=== PATIENT | female | born 1955 | race Caucasian/White ===

== ENCOUNTER 2019-05-18 07:37 | Outpatient (CLI) | payer BC, SELFPAY ==
--- NOTE | ~2019-05-18 | MM_ITS ---
EXAMINATION: MM screening [facility] BI w ken HISTORY: Screening mammogram TECHNIQUE: Craniocaudal and mediolateral oblique 3-D tomosynthesis images were obtained and synthetic 2-D images were generated. CAD analysis was submitted and interpreted. COMPARISON: Comparison to multiple prior studies sequentially, with oldest reviewed study dated 10/23. BREAST PARENCHYMAL COMPOSITION: There are scattered areas of fibroglandular density. FINDINGS: There is no evidence of suspicious mass, calcification, or architectural distortion to sugg est malignancy in either breast. There has been no suspicious interval change. IMPRESSION: 1. No mammographic evidence of malignancy. 2. Recommend routine screening mammography in one year. BI-RADS Category 1: Negative Reviewed, dictated and finalized at location A.
== END 2019-05-18 07:38 | disposition home or self-care (01) ==
LOC: ANHIMG 07:46
PROVIDERS: PCP Family Medicine; Visit Provider Student in an Organized Health Care Education/Training Program
DX: Z12.31 Encounter for screening mammogram for malignant neoplasm of breast (principal)
CPT/HCPCS: 77063; 77067

== ENCOUNTER 2021-10-26 10:21 | Outpatient (CLI) | payer BC, SELFPAY ==
--- NOTE | ~2021-10-26 | MM_ITS ---
EXAMINATION: MM screening [facility] BI w ken HISTORY: Screening mammogram TECHNIQUE: Craniocaudal and mediolateral oblique 3-D tomosynthesis images were obtained and synthetic 2-D images were generated. CAD analysis was submitted and interpreted. COMPARISON: 05/18/2019, 11/10/2017 BREAST PARENCHYMAL COMPOSITION: There are scattered areas of fibroglandular density. FINDINGS: There is no suspicious mass, calcification, or architectural distortion to suggest malignan cy in either breast. There has been no suspicious interval change. IMPRESSION: 1. No mammographic evidence of malignancy. 2. Recommend routine screening mammography in one year. BI-RADS Category 1: Negative Reviewed, dictated and finalized at location A.
== END 2021-10-26 10:22 | disposition home or self-care (01) ==
LOC: ANHIMG 10:23
PROVIDERS: PCP Family Medicine; Visit Provider Student in an Organized Health Care Education/Training Program
DX: Z12.31 Encounter for screening mammogram for malignant neoplasm of breast (principal)
CPT/HCPCS: 77063; 77067

== ENCOUNTER → 2022-08-27 10:28 | Outpatient (CLI) | payer MEDICARE, SELFPAY ==
--- NOTE | ~2022-08-27 | US_ITS ---
EXAMINATION: US pelvic complete w TV DATE: 08/27/2022 10:53 INDICATION: Postmenopausal bleeding TECHNIQUE: Multiple transabdominal and endovaginal sonographic images of the pelvis were obtained. COMPARISON: None. FINDINGS: The uterus measures 7.1 x 3.3 x 4.5 cm. There is a 1.6 x 1.3 cm mildly hyperechoic mass in the anterior uterine body with the appearance of an intramural fibroid. The endometrial complex measu res 9 mm. The ovaries are not visualized however no adnexal abnormality is seen. There is no free flu id in the pelvis. IMPRESSION: 1. Endometrial thickening which may be due to hyperplasia, polyp, or malignancy. Endometrial sampling is recommended. Reviewed, dictated and finalized at location B. IMPRESSION: 1. Endometrial thickening which may be due to hyperplasia, polyp, or malignancy . Endometrial sampling is recommended.
== END ==
PROVIDERS: PCP Family Medicine; Visit Provider Registered Nurse
DX: N95.0 Postmenopausal bleeding (principal); R93.89 Abnormal findings on diagnostic imaging of other specified body structures
CPT/HCPCS: 76830; 76856

== ENCOUNTER 2022-12-13 13:31 | Outpatient (CLI) | payer MEDICARE, SELFPAY ==
--- NOTE | ~2022-12-13 | MM_ITS ---
EXAMINATION: MM screening [facility] BI w ken HISTORY: Screening TECHNIQUE: Craniocaudal and mediolateral oblique 3-D tomosynthesis images were obtained and synthetic 2-D images were generated. CAD analysis was submitted and interpreted. COMPARISON: Comparison to multiple prior studies sequentially, with oldest reviewed study dated 10/23. BREAST PARENCHYMAL COMPOSITION: There are scattered areas of fibroglandular density. FINDINGS: There is no evidence of suspicious mass, calcification, or architectural distortion to sugg est malignancy in either breast. There has been no suspicious interval change. IMPRESSION: 1. No mammographic evidence of malignancy. 2. Recommend routine screening mammography in one year. BI-RADS Category 1: Negative Reviewed, dictated and finalized at location A.
== END 2022-12-13 13:32 | disposition home or self-care (01) ==
LOC: ANHIMG 13:36
PROVIDERS: PCP Family Medicine; Visit Provider Obstetrics & Gynecology
DX: Z12.31 Encounter for screening mammogram for malignant neoplasm of breast (principal)
CPT/HCPCS: 77063; 77067

== ENCOUNTER → 2023-02-07 09:18 | Outpatient (CLI) | payer MEDICARE, SELFPAY ==
--- NOTE | ~2023-02-07 | MR_ITS ---
MRI of the right shoulder Technique: Axial proton-density fat-sat images, coronal proton density fat-sat and T2 fat-sat images, and sagittal T1-weighted and T2 fat-sat images were acquired. Clinical History: Pain Findings: There is moderate AC joint degenerative change. Coracoclavicular, coracoacromial, and corac ohumeral ligaments are intact. There is a 1.0 x 0.8 cm full-thickness tear of the anterior, distal supraspinatus tendon insertion. T here is background advanced tendinosis of the supraspinatus tendon. Infraspinatus tendon demonstrates moderate tendinosis, without partial or full-thickness tear. There is mild to moderate subscapularis tendinosis, without tear. Tendon of long head of the biceps is intact, with probable advanced intra- articular tendinosis. No labral tear evident. Inferior glenohumeral ligament is intact. There is small glenohumeral joint effusion, with fluid pass ing through the rotator cuff defect into the subacromial/subdeltoid bursa. No muscle atrophy or edema evident. No degenerative change of the glenohumeral joint. Impression: 1.0 x 0.8 cm full-thickness tear at the anterior, distal supraspinatus tendon insertion region. Severe rotator cuff tendinosis. Moderate AC joint degenerative change. Reviewed, dictated and finalized at [facility]. ERCIAL LINES MANAGER Impression: 1.0 x 0.8 cm full-thickness tear at the anterior, distal supraspinatus tendon i nsertion region. Severe rotator cuff tendinosis. Moderate AC joint degenerative change.
== END ==
PROVIDERS: PCP Orthopaedic Surgery; Visit Provider Physician Assistant Surgical
DX: M75.121 Complete rotator cuff tear or rupture of right shoulder, not specified as traumatic (principal); M19.011 Primary osteoarthritis, right shoulder
CPT/HCPCS: 73221

== ENCOUNTER 2023-04-19 09:45 | Outpatient (CLI) | payer MEDICARE, SELFPAY ==
--- NOTE | 2023-04-19 09:59 | ECG_ITS ---
Measurements Intervals [place] Rate: 65 P: -4 TX: 161 QRS: -20 QRSD: 89 T: 12 QT: 406 QTc: 422 Interpretive Statements SINUS RHYTHM NO PREVIOUS ECG AVAILABLE FOR COMPARISON Electronically Signed On 04-19-2023 15:37:24 HAND STONER by Panda Rock M.D.
== END 2023-04-19 09:46 | disposition home or self-care (01) ==
PROVIDERS: PCP Family Medicine; Visit Provider Family Medicine
DX: Z01.818 Encounter for other preprocedural examination (principal)
CPT/HCPCS: 93005

== ENCOUNTER 2024-05-11 15:24 | Outpatient (CLI) | payer MEDICARE, SELFPAY ==
--- NOTE | ~2024-05-11 | MM_ITS ---
EXAMINATION: MM screening jamie BI w ken HISTORY: Screening TECHNIQUE: Craniocaudal and mediolateral oblique 3-D tomosynthesis images were obtained and synthetic 2-D images were generated. CAD analysis was submitted and interpreted. COMPARISON: Comparison to multiple prior studies sequentially, with oldest reviewed study dated 02/2015. BREAST PARENCHYMAL COMPOSITION: Not dense: There are scattered areas of fibroglandular density. FINDINGS: There is no evidence of suspicious mass, calcification, or architectural distortion to sugg est malignancy in either breast. There has been no suspicious interval change. IMPRESSION: 1. No mammographic evidence of malignancy. 2. Recommend routine screening mammography in one year. BI-RADS Category 1: Negative Reviewed, dictated and finalized at location B.
--- OUTSIDE RECORDS SUMMARY | 2024-05-11 15:29 | XMS_ITS | Referral Summary ---
Author Organization [facility] Address [address] [place] [id number] Care Team Providers Care Medical Records Tech Name Role Phone Mary Ann Betancourt MD Primary Care Provider [phone] Allergies Active Allergy Reactions Criticality Noted Date Comments Codeine Nausea only Low 04/29/2023 Medications ESTRADIOL ORALIndications :horomone Take 2.25 mg by mouth every morning Active prasterone, DHEA, (DHEA ORAL)Indication s:supplement Take 5 mg by mouth every morning Active PROGESTERONE MICRONIZED ORALIndications :horomone Take 300 mg by mouth nightly Active VITAMINS A AND D ORALIndications :supplement Take 1 capsule by mouth every morning With Vitamin K Active UNABLE TO FINDIndications :horomone Apply 1 each topically nightly Med Name: Testosterone Cream 65mg/ml Active THYROID, BULK, MISCIndications :thyroid Take 2.25 granules by mouth every morning Active omega-3/dha/epa /fish oil (OMEGA-3 ORAL)Indication s:supplement Take 2 tablets by mouth every morning Plus Co-Q10 Active turmeric root extract 500 mg capsuleIndicati ons:supplement Take 482 mg by mouth every morning Active cetirizine (ZyrTEC) 10 mg tabletIndicatio ns:Seasonal Allergic Rhinitis Take 1 tablet (10 mg total) by mouth nightly Active oxyCODONE (ROXICODONE) 5 mg immediate release tabletIndicatio ns:Pain Take 1 tablet (5 mg total) by mouth every 6 (six) hours as needed for pain 28 tablet 4 Active ketorolac (TORADOL) 10 mg tablet Take 1 tablet (10 mg total) by mouth every 6 (six) hours as needed for pain 12 tablet 4 Active senna-docusate (PERICOLACE) 8.6-50 mg Take 1 tablet by mouth 2 (two) times a day as needed for constipation 30 tablet 4 Active Active Problems Problem Noted Date Diagnosed Date Biceps tendinitis of right shoulder 05/24/2023 Right shoulder pain 04/11/2023 Traumatic complete tear of right rotator cuff Non-toxic multinodular goiter 07/14/2013 Overview (06/03/2016): NONTOX MULTINODUL GOITER Subacute thyroiditis 07/14/2013 Overview (2016): SUBACUTE THYROIDITIS Hypothyroidism 07/14/2013 Overview (2016): HYPOTHYROIDISM NOS Social History Tobacco Use Types Packs/Day Years Used Date Smoking Tobacco: Former Cigarettes Q uit: 1976 Smokeless Tobacco: Former Tobacco Cessation:Counseling Given: Not Answered AUDIT-C Answer Date Recorded Q1: How often do you have a drink containing alc ohol? 2-4 times a month 05/24/2023 Q2: How many drinks containi ng alcohol do you have on a typical day when you are drinking? 1 or 2 05/24/2023 Q3: How often do you have si x or more drinks on one occasion? Never 05/24/2023 Personal Safety Answer Date Recorded Have you ever been in or are you currently in a harmful physical or emotional relationship or is someone making you feel afraid or unsafe? 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 Gender Identity Not on file Sexual Orientation Not on file Last Filed Vital Signs Vital Sign Reading Time Taken Comments Blood Pressure 147/84 05/24/2023 11:50 AM CDT Pulse 69 05/24/2023 11:55 AM CDT Temperature 36.3 C (97.3 F) 05/24/2023 11:18 AM CDT Respiratory Rate 18 05/24/2023 11:55 AM CDT Oxygen Saturation 97% 05/24/2023 11:55 AM CDT Inhaled Oxygen Concentration - - Weight 76.4 kg (168 lb 8 oz) 05/24/2023 7:05 AM CDT Height 162.6 cm (5' 4 ) 05/24/2023 7:05 AM CDT Body Mass Index 28.92 05/24/2023 7:05 AM CDT Plan of Treatment Not on file Medical Devices Implanted Type Area Databases Computer Consultant Device Identifier Shelf Expiration Date Model / Serial / Lot [employer] Fiberloop 3.2mm Drill Pin Needle Shoehorn Cannula Kit Suture Ar-2290 - [id number] Implanted:Qty: 1 on 05/24/2023 by Sneha Willis MD at [facility] [place] Right: Shoulder [employer] [id number] 01/28/2028 AR-2290 / / [id number] [employer] Suture Blessing Triple Loaded Knotless Fibertak 2.6mm Ar-[id number] - [id number] Implanted:Qty: 1 on 05/24/2023 by Sneha Willis MD at [facility] [place] Right: Shoulder [employer] 03/30/2028 AR-[id number] / / [id number] [employer] Ar-2324 Bcm Swivelock 4.75mm 24.5mm Self Punch Vent Shoulder Blessing Suture - [id number] Implanted:Qty: 1 on 05/24/2023 by Sneha Willis MD at [facility] [place] Right: Shoulder [employer] 12/28/2026 AR-[id number] M / / [id number] [employer] Ar-2324 Bcm Swivelock 4.75mm 24.5mm Self Punch Vent Shoulder Blessing Suture - [id number] Implanted:Qty: 1 on 05/24/2023 by Sneha Willis MD at [facility] [place] Right: Shoulder [employer] 12/28/2026 [id number] M / / [id number] Insurance MEDICARE [employer] Care Teams Medical Records Tech Relationship Specialty Start Date End Date Mary Ann Betancourt MD PCP - General 02/14/07
--- OUTSIDE RECORDS SUMMARY | 2024-05-11 15:29 | XMS_ITS | Clinical Summary ---
Author Organization [facility] Address [address] [place] [address] Care Team Providers Care Offset Second Press Operator Name Role Phone Ruthann Pepper MD Unavailable [phone] Yonatan Quick MD Unavailable [phone] Mary Ann Betancourt MD Primary Care Provider [phone] Source Comments [facility],non-owned Affiliates and Associated Physician Practices is amultiple site organization consisting of ambulatory clinics and hospital sitesin [place], [place], [place] and [place]. This disclosure is being madepursuant to the Care Everywhere program and may not contain all information available regarding this patient. Last updated 17.[facility] Allergies No known active allergies Medications * Be aware that medications may not be up to date on this document. Alwaysverify current medications with the patient. Medication Sig Dispensed Refills Start Date End Date Status Prasterone, DHEA, (DHEA MICRONIZED PO) Take 5 mg/day by mouth once daily Active progesterone 300 mg ERT 300 mg tablet Take 1 (one) tablet by mouth once daily Active Coenzyme [id number] 3 Fatty Acd (CoQmax [place]) 100 MG CAPS Take 100 mg/day by mouth once daily Active Other Take by mouth once daily Thyroid 2.75 grains Active estradiol (Estrace) 2 MG tablet Take 1 (one) tablet by mouth once daily Active bioidentical testosterone cream compound Apply to affected area once daily Strength: 65mg /ml Active vitamin D3 (D3 5000) 125 MCG (5000 UT) capsule Take 1 (one) capsule by mouth once daily Active Turmeric 500 MG Active lisinopril (Prinivil; Zestril) 2.5 MG tablet Take 1 (one) tablet by mouth once daily Active Active Problems Problem Noted Date Diagnosed Date Family history of kidney disease 03/18/2024 HTN (hypertension), benign 03/18/2024 Microalbuminuria 08/05/2023 Willing to be kidney donor 08/19/2022 Overview (10/01/2022): Images from the original note were not included. Kidney Donor Review Donor Name: Rosi Babb UNOS ID: Living Donor Nurse Coordinator: Surjit Raygoza RN Test Donor Results Acceptable to proceed with donation? LABS CMP BUN (mg/dL) Date Value 09/20/2022 15 Creatinine (mg/dL) Date Value 09/20/2022 0.73 Sodium (mmol/L) Date Value 09/20/2022 138 Potassium (mmol/L) Date Value 09/20/2022 4.3 Chloride (mmol/L) Date Value 09/20/2022 107 CO2 (mmol/L) Date Value 09/20/2022 24 Glucose (mg/dL) Date Value 09/20/2022 92 Calcium (mg/dL) Date Value 09/20/2022 9.2 Albumin (g/dL) Date Value 09/20/2022 3.6 Bilirubin Total (mg/dL) Date Value 09/20/2022 1.0 Alkaline Phosphatase (U/L) Date Value 09/20/2022 49 ALT (U/L) Date Value 09/20/2022 15 AST (U/L) Date Value 09/20/2022 19 eGFR by CKD-EPI (mL/min/1.73 m2) Date Value 09/20/2022 >90 Acceptable PHOS Recent Labs Component Name 09/20/22 0821 PHOS 2.2* UNACCEPTABLE (plan to repeat 10/01/22 with PTH, Vit D, and urine phos and urine creatinine Uric Acid Recent Labs Component Name 09/20/22 0821 URICACID 4.2 Acceptable Lipid profile Acceptable Drug Screen Recent Labs Component Name 09/20/22 0820 LABAMPH Negative LABBARB Negative LABBENZ Negative LABOPIA Negative COCAINESCRN Negative PCPUR Negative THCUR Negative METHADONE Negative Acceptable Alcohol Recent Labs Component Name 09/20/22 0821 ETOH <10 Acceptable Nicotine Recent Labs Component Name 09/20/22 0821 NICOTBLD <5 COTINBLD <5 Acceptable Urinalysis + micro Recent Labs Component Name 09/20/22 0821 COLORU Straw CLARITYU Clear LABSPEC 1.005 PHUA 6.0 PROTEINU Negative KETONES Negative BILIRUBINUR Negative BLOODU Negative NITRITE Negative LEUKOCYTE Negative UROBILINUA Negative No URINE CULTURE indicated. Acceptable Cystatin C Recent Labs Component Name 09/20/22 0821 EGFRCYSTATIN 71 CYSTATINC 1.0 CrCl Method Nuc Med Findings: Uncorrected GFR 137.0 ml/min/1.73 m2 After body surface area correction, Corrected GFR 131.0 Normal range of GFR in adult female between 74.4 and 110.4 Impression: GFR of 131.0 ml/min/1.73 m2, which is normal for the patient's age. Acceptable CrCl Result = 160ml/min Acceptable Urine Microalbumin Urine Albumin/Creatinine Ratio (mg/g) Date Value 09/20/2022 88 (H) Creatinine Urine (mg/dL) Date Value 09/20/2022 23.60 Unacceptable Urine Total Protein Acceptable Hemoglobin A1c 5.2 Resulting Agency [facility] Specimen Collected: 08/10/22 08:19 Acceptable 2 HR GTT 93 Resulting Agency [facility] Specimen Collected: 08/10/22 08:19 Acceptable CBC Recent Labs Component Name 09/20/22 0821 WBC 7.4 HGB 13.1 HCT 38.5 PLTCOUNT 254 Acceptable PTT APTT (Seconds) Date Value 09/20/2022 23.4 Acceptable INR INR (no units) Date Value 09/20/2022 0.9 Acceptable ABO Recent Labs Component Name 09/20/22 0815 ABORH O POS Acceptable Preliminary crossmatch Negative Acceptable Antibody screen Recent Labs Component Name 09/20/22 0815 ABSCG NEG Acceptable ABOi or KPD Remote donor for brother in [place] Acceptable SEROLOGIES CMV Recent Labs Component Name 09/20/22 0821 CMVIGG >10.00* CMVIGM <30.0 Acceptable EBV Recent Labs Component Name 09/20/22 0821 EBVABIGG >600.0* EBVIGMAB <36.0 Acceptable Hepatitis B Surface Antibody Recent Labs Component Name 09/20/22 0821 HEPBSAB Non-reactive HBVSAB 0.0 Acceptable Hepatitis B Surface Antigen Recent Labs Component Name 09/20/22 0821 HEPBSAG Non-reactive Acceptable Hepatitis B Core Total Antibody Recent Labs Component Name 09/20/22 0821 HEPBCAB Non-reactive Acceptable Hepatitis C Antibody Recent Labs Component Name 09/20/22 0821 HEPCAB Non-reactive Acceptable HIV AG/AB Qualitative Recent Labs Component Name 09/20/22 0821 [id number] Negative Acceptable QUANT Gold Recent Labs Component Name 09/20/22 0821 QNTTBGOLD Negative Acceptable Strongyloides Recent Labs Component Name 09/20/22 0821 STRONGYL 0.5 Acceptable T Cruzi Recent Labs Component Name 09/20/22 0821 TCRUZIGG 0.4 Acceptable West Nile Recent Labs Component Name 09/20/22 0821 WNILEIGG 0.17 WNILEIGM 0.00 Acceptable Syphilis Total with Reflex Recent Labs Component Name 09/20/22 0821 TPALLIDUM Non-reactive Acceptable HEALTH SCREENING PSA No results for input(s): PSA in the last 55203 hours. N/A Mammogram BiRads 1 - negative Obtain record Pap ASC-US 01/19/2023 Abnormal ultrasound of uterus done d/t uterine bleeding- Biopsy planned 10/05/2022 Colonoscopy Obtain record 2014 IMAGING RESULTS Stress Test Stress: Overall, the patient's exercise capacity was above averate for their age. The patient exercised for 7 min and 53 sec and had a maximal HR of 153 bpm (99 % of MPHR) 10.1 METS. Stress ECG: The ECG was negative for ischemia. Post-stress Impression: Maximal exercise stress echocardiogram is negative for stress induced ischemia. Left Ventricle: Left ventricle size is normal. Normal wall thickness. Ventricular mass is normal. Normal systolic function. EF by 2D Ugalde biplane is 57%. Normal wall motion. Normal diastolic function. Right Ventricle: Right ventricle size is normal. Normal systolic function. No significant valvular abnormalities. Needed 10/01/22 CXR Findings/Impression: There is no focal consolidation, pleural effusion, or pneumothorax. The cardiomediastinal silhouette is normal. The visible bony thorax is intact. Acceptable CTA w/ 3D Relative function is 48.0% for the left kidney and 52.0% for the right Kidney. Right Kidney: Number of arteries: 1 Number of veins: 1 Number of ureters: 1 Kidney height: 10.1 cm Kidney length: 5.4 cm Kidney width: 5.7 cm Kidney volume (mL/cc): 174 mL Renal artery has early bifurcation(<10mm from aorta): No There is a 2 mm cyst in the upper pole of the right kidney seen on series 9 image 88 and a 1.1 cm cyst in the interpolar right kidney seen on series 9 image 98. Is also a 4 mm cyst in the lower pole of the right kidney seen on series 9 image 104. Left Kidney: Number of arteries: 1 Number of veins: 1 Number of ureters: 1 Kidney height: 10.7 cm Kidney length: 4.4 cm Kidney width: 4.8 cm Kidney volume (mL/cc): 153 mL Renal artery has early bifurcation(<10mm from aorta): Yes Early bifurcation length (If present): 7 mm Acceptable UNOS/CMS COMPLIANCES Independent Donor Advocate Needed 10/01/22 Clinical Psychologist/SW Acceptable Transplant Surgeon Rodrigo Needed 10/01/22 UNOS/CMS Education CW Completed Living Donor Consent CW Completed ESRD Risk Prediction Completed Completed by: Surjit Raygoza RN [place] [facility] Date: 09/30/2022 Encounters Date Type Department Care Team Description 03/16/2024 10:30 AM AUTO BODY TECHNICIAN Office Visit [facility] - Nephrology [address] [place] [id number] Virginia Andrews MD Albuminuria (Primary Dx); Primary hypertension; Family history of kidney disease 03/16/2024 Orders Only [facility] [address] [place] [id number] Surjit Raygoza, RN Microalbuminuria 03/16/2024 Orders Only [facility] [address] [place] [id number] Surjit Raygoza, RN Microalbuminuria 03/16/2024 Travel from Last 3 Months Immunizations Name Administration Dates Next Due TDAP (7yrs+) 11/12/2016 Family History Medical History Relation Name Comments Diabetes - Type 2 Brother 1 Diego Best Hypertension Brother 1 Diego Best Renal Disease Brother 1 Diego Best CVA Brother 2 Oscar Best Diabetes - Gestational Daughter Thyroid Disease Daughter Alzheimer's Disease Father Clarence Best Aneurysm, Aortic Father Clarence Best CVA Maternal Grandfather Diabetes - Type 2 Maternal Grandfather Cancer - Skin, Melanoma Maternal Uncle River Timmons Diabetes - Type 2 Maternal Uncle River Timmons High Cholesterol Mother Keely Keith Macular Degeneration Mother Keely Keith Alzheimer's Disease Paternal Grandmother Relation Name Status Comments Brother 1 Diego Best Alive Brother 2 Oscar Best Alive Daughter Alive Father Clarence Best (Age 81) Maternal Grandfather Maternal Uncle River Timmons Alive Mother Keely Best Alive Paternal Grandmother (Age 90) Son Alive Social History Tobacco Use Types Packs/Day Years Used Date Smoking Tobacco: Former Cigarettes 1 14 0 02/28/1975 - 02/28/1989 Passive Smoke Exposure: Past Smokeless Tobacco: Never Tobacco Cessation:Counseling Given: Not Answered Alcohol Use Standard Drinks/Week Comments Yes 1 (1 standard drink = 0.6 oz pur e alcohol) Sex and Gender Information Value Date Recorded Sex Assigned at Not on file Gender Identity Not on file Sexual Orientation Straight 12/28/2022 4: 24 PM CDT Last Filed Vital Signs Vital Sign Reading Time Taken Comments Blood Pressure 149/83 03/16/2024 11:19 AM AUTO BODY TECHNICIAN Pulse 100 03/16/2024 11:19 AM AUTO BODY TECHNICIAN Temperature 36.7 C (98 F) 03/16/2024 10:48 AM AUTO BODY TECHNICIAN Respiratory Rate 20 03/16/2024 10:48 AM AUTO BODY TECHNICIAN Oxygen Saturation 99% 08/05/2023 8:23 AM CDT Inhaled Oxygen Concentration - - Weight 73.9 kg (163 lb) 03/16/2024 10:48 AM AUTO BODY TECHNICIAN Height 163 cm (5' 4.17 ) 10/01/2022 10:26 AM CDT Body Mass Index 27.83 10/01/2022 10:26 AM CDT Plan of Treatment Health Maintenance Due Date Last Done Comments BONE DENSITY TESTING 1955 COLOGUARD (AGES 45-75) - COL ON CA SCREENING 1957 COLON MONITORING 1957 COLONOSCOPY - COLON CA SCREENING 1957 CT COLONOGRAPHY - COLON CA SCREENING 1957 Colorectal Cancer Screening 1957 FIT - COLON CA SCREENING 1957 FLEX SIG - COLON CA SCREENING 1957 LIPID TESTING 1957 MEDICARE AWV 12 MONTHS 1957 PNEUMOCOCCAL VACCINE 50+ (1 of 1 - PCV) 06/05/2007 ZOSTER VACCINE (1 of 2) 06/05/2007 MAMMOGRAM 04/12/2018 04/12/2016 COVID-19 VACCINE (3 - 2023-2 5 season) 2023 01/12/2021, 05/12/2020 INFLUENZA VACCINE (#1) 2023 , 01/17/2019, 12/09/2015 DEPRESSION SCREENING 02/29/2024 DTAP/TDAP/TD VACCINES (2 - T d or Tdap) 11/12/2026 11/12/2016 Respiratory Syncytial Virus (RSV) Vaccine Pt: or over 60 yrs (1 - 1-dose 75+ series) 2032 HEPATITIS C SCREENING Completed 09/20/2022 HEPATITIS B VACCINE Aged Out No longe r eligible based on patient's age to complete this topic HIB VACCINE Aged Out No longer eligi ble based on patient's age to complete this topic HPV VACCINE Aged Out No longer eligi ble based on patient's age to complete this topic MENINGOCOCCAL (Group B) VACCINE SHARED DECISION-MAKING Aged Out No longer eligible based on patient's age to complete this topic MENINGOCOCCAL GROUPS A/C/Y/W VACCINE Aged Out No longer eligible b ased on patient's age to complete this topic Procedures Procedure Name Priority Date/Time Associated Diagnosis Comments CYSTATIN C LEVEL Routine 03/09/2024 9:36 AM AUTO BODY TECHNICIAN Albuminuria White coat syndrome with diagnosis of hypertension Willing to be kidney donor URINALYSIS W/MICROSCOPIC REFLEX TO CULTURE Routine 03/09/2024 9:36 AM AUTO BODY TECHNICIAN Albuminuria White coat syndrome with diagnosis of hypertension Willing to be kidney donor PROTEIN CREATININE RATIO URINE RANDOM PNL Routine 03/09/2024 9:36 AM AUTO BODY TECHNICIAN Albuminuria White coat syndrome with diagnosis of hypertension Willing to be kidney donor MICROALB/CREAT RATIO URINE RANDOM PANEL Routine 03/09/2024 9:36 AM AUTO BODY TECHNICIAN Albuminuria White coat syndrome with diagnosis of hypertension Willing to be kidney donor PTH INTACT Routine 03/09/2024 9:36 AM AUTO BODY TECHNICIAN Albuminuria White coat syndrome with diagnosis of hypertension Willing to be kidney donor CBC W AUTO DIFFERENTIAL Routine 03/09/2024 9:36 AM AUTO BODY TECHNICIAN Albuminuria White coat syndrome with diagnosis of hypertension Willing to be kidney donor RENAL FUNCTION PANEL Routine 03/09/2024 9:36 AM AUTO BODY TECHNICIAN Albuminuria White coat syndrome with diagnosis of hypertension Willing to be kidney donor HEPATITIS C AB SCREEN RFLX NAAT QUANT STAT 09/20/2022 8:21 AM CDT Willing to be kidney donor from Last 3 Months or Most Recently Relevant to Health Maintenance Results * CYSTATIN C LEVEL (03/09/2024 9:36 AM AUTO BODY TECHNICIAN) Pathologist [facility] Cystatin C 0.90 0.72 - 1.16 mg/L [facility] INSURANCE BILL Blood BLOOD SPECIMEN / Unknown 03/09/2024 9:36 AM AUTO BODY TECHNICIAN 03/09/2024 Narrative [facility] INSURANCE BILL - 03/13/2024 7:08 AM AUTO BODY TECHNICIAN Performed at: [address] [place] [id number] Ux Ui Designer: Rangel Sanchez MD, Phone: [phone] Specimen Comment: A courtesy copy of this report has been sent to [facility] Specimen Comment: Tori Virginia Andrews MD LAB - CHEMISTRY EZEKIEL ROBLERO [facility] INSURANCE BILL [address] [place] [address] * (ABNORMAL) URINALYSIS W/MICROSCOPIC REFLEX TO CULTURE (03/09/2024 9:36 AM AUTO BODY TECHNICIAN) Pathologist [facility] Specific Waterflow UA 1.017 1.005 - 1.030 [facility] INSURANCE BILL pH UA 6.5 5.0 - 7.5 [facility] INSURANCE BILL Color UA Yellow Yellow [facility] INSURANCE BILL Appearance Clear Clear [facility] INSURANCE BILL Leukocyte UA Trace(A) Negative [facility] INSURANCE BILL Protein UA Negative Negative/Tr christina [facility] INSURANCE BILL Glucose UA Negative Negative [facility] INSURANCE BILL Ketone UA Negative Negative [facility] INSURANCE BILL Occult Blood Urine Negative Negative [facility] INSURANCE BILL Bilirubin UA Negative Negative [facility] INSURANCE BILL Urobilinogen 0.2 0.2 - 1.0 mg/dL [facility] INSURANCE BILL Nitrite UA Negative Negative [facility] INSURANCE BILL Microscopic Examination Urine See below: [facility] INSURANCE BILL Comment:Microscopic was hafsa cated and was performed. Urinalysis Reflex Comment [facility] INSURANCE BILL Comment: This specimen has reflexed to a Urine Culture. Performed at: [address] [id number] [employer] Ui Designer: Gumaro Francis PhD, Phone: [phone] WBC UA None seen 0 - 5 /hpf [facility] INSURANCE BILL RBC UA None seen 0 - 2 /hpf [facility] INSURANCE BILL Epithelial Cells (non renal) 0-10 0 - 10 /hpf [facility] INSURANCE BILL Casts ua None seen None seen /lpf [facility] INSURANCE BILL Mucus UA Present Not Estab. [facility] INSURANCE BILL Bacteria UA None seen None seen/Few [facility] INSURANCE BILL Comment: Performed at: [address] [id number] Ux Ui Designer: Gumaro Francis PhD, Phone: [phone] Urine Culture Comprehensive Final report [facility] INSURANCE BILL Result 1 Comment [facility] INSURANCE BILL Comment:No growth in 36 - 48 hours. Urine URINE SPECIMEN OBTAINED BY CLEAN CATCH PROCEDURE / Unknown 03/09/2024 9:36 AM AUTO BODY TECHNICIAN 03/09/2024 Narrative [facility] INSURANCE BILL - 03/12/2024 3:07 PM AUTO BODY TECHNICIAN Performed at: [address] [place] [id number] [employer] Ui Designer: Gumaro Francis PhD, Phone: [phone] Virginia Andrews MD LAB - URINALYSIS ORD ERABLES [facility] INSURANCE BILL [address] [place] [address] * (ABNORMAL) MICROALB/CREAT RATIO URINE RANDOM PANEL (03/09/2024 9:36 AM AUTO BODY TECHNICIAN) Microalbumin Urine 47.4 Not Estab. ug/mL [facility] INSURANCE BILL Microalbumin/Crea tinine Ratio 53(H) 0 - 29 mg/g creat [facility] INSURANCE BILL Comment: Normal: 0 - 29 Moderately increased: 30 - 300 Severely increased: >300 Urine URINE SPECIMEN OBTAINED BY CLEAN CATCH PROCEDURE / Unknown 03/09/2024 9:36 AM AUTO BODY TECHNICIAN 03/09/2024 Narrative [facility] INSURANCE BILL - 03/10/2024 7:08 AM AUTO BODY TECHNICIAN Performed at: [facility] [id number] Ux Ui Designer: Gumaro Francis PhD, Phone: [phone] Virginia Andrews MD LAB - URINE CHEMISTR Y ORDERABLES Performing Organization Address [facility] Co de Phone Number [facility] INSURANCE BILL [address] [place] [address] * PTH INTACT (03/09/2024 9:36 AM AUTO BODY TECHNICIAN) Pathologist [facility] PTH Intact 17 15 - 65 pg/mL [facility] INSURANCE BILL Blood BLOOD SPECIMEN / Unknown 03/09/2024 9:36 AM AUTO BODY TECHNICIAN 03/09/2024 Narrative [facility] INSURANCE BILL - 03/11/2024 1:06 PM AUTO BODY TECHNICIAN Performed at: [address] [id number] Ux Ui Designer: Gumaro Francis PhD, Phone: [phone] Virgiina Andrews MD LAB - CHEMISTRY ORDE RABLES Performing Organization Address [facility] de Phone Number [facility] INSURANCE BILL [address] [place] [address] * CBC WITH DIFFERENTIAL (03/09/2024 9:36 AM AUTO BODY TECHNICIAN) WBC 6.6 3.4 - 10.8 x10E3/uL [facility] INSURANCE BILL RBC 4.23 3.77 - 5.28 x10E6/uL [facility] INSURANCE BILL Hemoglobin 13.0 11.1 - 15.9 g/dL [facility] INSURANCE BILL Hematocrit 40.0 34.0 - 46.6 % [facility] INSURANCE BILL MCV 95 79 - 97 fL [facility] INSURANCE BILL MCH 30.7 26.6 - 33.0 pg [facility] INSURANCE BILL MCHC 32.5 31.5 - 35.7 g/dL [facility] INSURANCE BILL RDW 11.7 11.7 - 15.4 % [facility] INSURANCE BILL Platelet Count 296 150 - 450 x10E3/uL [facility] INSURANCE BILL Granulocytes % 50 Not Estab. % [facility] INSURANCE BILL Lymphocytes % 37 Not Estab. % [facility] INSURANCE BILL Monocytes % 8 Not Estab. % [facility] INSURANCE BILL Eosinophils % 4 Not Estab. % [facility] INSURANCE BILL Basophils % 1 Not Estab. % [facility] INSURANCE BILL Granulocytes Absolute 3.3 1.4 - 7.0 x10E3/uL [facility] INSURANCE BILL Lymphocytes Absolute 2.4 0.7 - 3.1 x10E3/uL [facility] INSURANCE BILL Monocytes Absolute 0.5 0.1 - 0.9 x10E3/uL [facility] INSURANCE BILL Eosinophils Absolute 0.2 0.0 - 0.4 x10E3/uL [facility] INSURANCE BILL Basophils Absolute 0.1 0.0 - 0.2 x10E3/uL [facility] INSURANCE BILL Immature Granulocytes 0 Not Estab. % [facility] INSURANCE BILL Immature Granulocytes Absolute 0.0 0.0 - 0.1 x10E3/uL [facility] INSURANCE BILL Blood BLOOD SPECIMEN / Unknown 03/09/2024 9:36 AM AUTO BODY TECHNICIAN 03/09/2024 Narrative [facility] INSURANCE BILL - 03/10/2024 7:08 AM AUTO BODY TECHNICIAN Performed at: - [address] [id number] Ux Ui Designer: Gumaro Francis PhD, Phone: [phone] Virginia Andrews MD LAB - HEMATOLOGY ORD ERABLES [facility] INSURANCE BILL [address] [place] [address] * RENAL FUNCTION PANEL (03/09/2024 9:36 AM AUTO BODY TECHNICIAN) Glucose 90 70 - 99 mg/dL [facility] INSURANCE BILL BUN 14 8 - 27 mg/dL [facility] INSURANCE BILL Creatinine 0.81 0.57 - 1.00 mg/dL [facility] INSURANCE BILL eGFR by CKD-EPI 80 >59 mL/min/1.7 3 [facility] INSURANCE BILL BUN/Creatinine Ratio 17 12 - 28 [facility] INSURANCE BILL Sodium 134 134 - 144 mmol/L [facility] INSURANCE BILL Potassium 4.4 3.5 - 5.2 mmol/L [facility] INSURANCE BILL Chloride 99 96 - 106 mmol/L [facility] INSURANCE BILL CO2 22 20 - 29 mmol/L [facility] INSURANCE BILL Calcium 9.1 8.7 - 10.3 mg/dL [facility] INSURANCE BILL Phosphorus 3.0 3.0 - 4.3 mg/dL [facility] INSURANCE BILL Albumin 4.0 3.9 - 4.9 g/dL [facility] INSURANCE BILL Blood BLOOD SPECIMEN / Unknown 03/09/2024 9:36 AM AUTO BODY TECHNICIAN 03/09/2024 Narrative [facility] INSURANCE BILL - 03/10/2024 7:08 AM AUTO BODY TECHNICIAN Performed at: [address] [id number] Ux Ui Designer: Gumaro Francis PhD, Phone: [phone] Virginia Andrews MD LAB - CHEMISTRY ORDE RABAYLEEN Performing Organization Address [facility] Co de Phone Number [facility] INSURANCE BILL [address] [place] [address] * (ABNORMAL) PROTEIN CREATININE RATIO URINE RANDOM PNL (03/09/2024 9:36 AM AUTO BODY TECHNICIAN) Creatinine Urine 88.8 Not Estab. mg/dL [facility] INSURANCE BILL Protein Urine 19.7 Not Estab. mg/dL [facility] INSURANCE BILL Protein/Creatin ine Ratio 222(H) 0 - 200 mg/g creat [facility] INSURANCE BILL Urine URINE SPECIMEN OBTAINED BY CLEAN CATCH PROCEDURE / Unknown 03/09/2024 9:36 AM AUTO BODY TECHNICIAN 03/09/2024 Narrative [facility] INSURANCE BILL - 03/10/2024 7:08 AM AUTO BODY TECHNICIAN Performed at: [address] [id number] Ux Ui Designer: Gumaro Francis PhD, Phone: [phone] Virginia Andrews MD LAB - URINE CHEMISTR Y ORDERABLES Performing Organization Address City/[facility]/ZIP Co de Phone Number [facility] INSURANCE BILL [address] [place] [address] * HEPATITIS C AB SCREEN RFLX NAAT QUANT (09/20/2022 8:21 AM CDT) Hepatitis C Antibody Non-react onesimo Non-reac tive 09/20/2022 9:06 AM CDT [facility] Comment:Hepatitis C Antibody screen indicates no serologic evidence of past or current infection with Hepatitis C Virus. Patients with unexplained liver disease who are immunocompromised or suspected of having acute Hepatitis C infection may benefit from Nucleic Acid Test (GENEVA) for Hepatitis C Viral RNA to confirm Hepatitis C status. Blood BLOOD SPECIMEN / Unknown Lab Venipuncture / Unknown 09/20/2022 8:21 AM CDT 09/20/2022 8:23 AM CDT Mell Torres MD LAB - CHEMISTR Y ORDERABLES [facility] [address] [place] [address], [facility] [phone] from Last 3 Months or Most Recently Relevant to Health Maintenance Care Teams Offset Second Press Operator Relationship Specialty Start Date End Date Mary Ann Betancourt MD [address] [place] [address] PCP - General Family Medicine 12/24/22 Ruthann Pepper MD [address] [facility] [address] [place] [address] Obstetrics and Gynecology 10/01/22 Shanell Yonatan Hinkle MD [address] [facility] [address] [facility] [address] [place] [address] Optical Mechanic Apprentice Obstetrics and Gynecology 10/01/22
--- OUTSIDE RECORDS SUMMARY | 2024-05-11 15:29 | XMS_ITS | Encounter Summary ---
Author Organization [facility] Address [address] [place] [address] Care Team Providers Care Report Programmer Name Role Phone Unknown, Provider Primary Care Provider Ruthann Davis MD Unavailable [phone] Yonatan Quick MD Unavailable + [phone] Unknown, Provider Primary Care Provider Mary Ann Rosales MD Primary Care Provider [phone] Encounter Details Date Type Department Care Team (Late st Contact Info) Description 04/09/[address] [facility] DermPath Lab [address] [place] [id number] Geo Marcano MD [address] [place] [address] Social History Tobacco Use Types Packs/Day Years Used Date Smoking Tobacco: Never Assessed Sex and Gender Information Value Date Recorded Sex Assigned at Not on file Gender Identity Not on file Sexual Orientation Straight 12/28/2022 4: 24 PM CDT documented as of this encounter Plan of Treatment Not on file documented as of this encounter Procedures Procedure Name Priority Date/Time Associated Diagnosis Comments DERMATOPATHOLOGY Routine 04/08/2020 12:0 0 AM PRESSROOM FOREMAN documented in this encounter Results * DERMATOPATHOLOGY (04/08/2020 12:00 AM PRESSROOM FOREMAN) Case Report Dermatopathology Report Case: [id number] Authorizing Provider: Geo Marcano MD Collected: 04/08/2020 12:00 AM Ordering Location: [facility] DermPath Lab Received: 04/09/2020 11:43 AM Pathologist: Akua Mulligan MD Specimens: A) - Skin, below right popliteal B) - Skin, right lateral mid back 11:38 AM [facility] DERMATOPATHOLOGY LABORATORY Final Diagnosis Specimen A. SKIN, below right popliteal: LICHEN PLANUS-LIKE KERATOSIS (BENIGN LICHENOID KERATOSIS) (L82.1) NOT PRESENT AT SAMPLED MARGIN Specimen B. SKIN, right lateral mid back: SEBORRHEIC KERATOSIS, IRRITATED AND INFLAMED (L82.0) 11:38 AM [facility] DERMATOPATHOLOGY LABORATORY Clinical History A: R/O BCC. Check margins. B: R/O ISK vs dysplastic nevus. 11:38 AM [facility] DERMATOPATHOLOGY LABORAT[facility] Gross Description Specimen A: Received is one formalin filled container labeled with the patients name and designated below right popliteal. The specimen consists of a shave removal measuring [id number]. The margin is inked green. Jar 0. Specimen B: Received is one formalin filled container labeled with the patient's name and designated right lateral mid back. The specimen consists of a shave biopsy measuring [id number]. Jar 0. 11:38 AM [facility] DERMATOPATHOLOGY LABORATORY Microscopic Description Specimen A. SKIN, below right popliteal: The epidermis is mildly acanthotic. There is a lichenoid infiltrate with vacuolar changes of basilar keratinocytes and scattered necrotic keratinocytes. This lesion is not present at the sampled margin of the specimen. Specimen B. SKIN, right lateral mid back: Sections show acanthosis, papillomatosis, hyperkeratosis, and squamous eddies. There is a lymphohistiocytic infiltrate within the papillary dermis. 11:38 AM [facility] DERMATOPATHOLOGY LABORATORY Disclaimer An external and internal positive and negative controls are appropriate for the histochemical, immunohistochemical and immunofluorescence stain(s) in this case (if any), except where stated explicitly. The performance characteristics of the stain(s) cited in this report were developed and its performance characteristic determined by the Dermatopathology Laboratory at [facility], directed by Dr. Betty Turpin. These tests need not be, and therefore are not, approved by the [place] Food and Drug Administration. The tests are used for clinical purposes. Billing Codes Specimen Charges Stain Charges 78815 48543 1 1 11:38 AM [facility] DERMATOPATHOLOGY LABORATORY Embedded Images 11:38 AM [facility] DERMATOPATHOLOGY LABORATORY Pathology/Cytology TISSUE SPECIMEN FROM SKIN / Unknown 04/08/2020 04/09/2020 11:43 AM [employer] FOREMAN Miscellaneous samples (specimen) TISSUE SPECIMEN FROM SKIN / Unknown 04/08/2020 04/09/2020 11:43 AM PRESSROOM FOREMAN Geo Marcano MD LAB - PATHOLOGY/CYTO LOGY ORDERABLES DERMATOPATHOLOGY LABORATORY [facility] - Department of Dermatology [facility] Medicine [facility] [facility], 3rd Floor [address] [phone] documented in this encounter Visit Diagnoses Not on filedocumented in this encounter Care Teams Report Programmer Relationship Specialty Start Date End Date Unknown, Provider PCP - General 09/16/22 09/30/22 Unknown, Provider PCP - General Hospitalist 10/15/22 12/23/22 Mary Ann Betancourt MD [address] [place] [address] PCP - General Family Medicine 12/24/22 Ruthann Pepper MD [address] [facility] [address] [place] [address] Obstetrics and Gynecology 10/01/22 Yonatan Quick MD [address] [facility] [address] [place] [address] Supervisor [employer] Obstetrics and Gynecology 10/01/22 documented as of this encounter
--- OUTSIDE RECORDS SUMMARY | 2024-05-11 15:29 | XMS_ITS | Clinical Summary ---
Author Organization [facility] Address [address] [place] [address] Care Team Providers Care Veneer Jointer Returner Name Role Phone Mary Ann Betancourt MD Primary Care Provider [phone] Allergies Active Allergy Reactions Criticality Noted Date [...] THYROIDITIS Hypothyroidism 07/14/2013 Overview (2016): HYPOTHYROIDISM NOS Surgical History Surgery Date Site/Laterality Comments TONSILLECTOMY 02/28/1977 - 02/27/1978 SHOULDER SURGERY 02/28/2005 - 02/27/2006 Left bone spur COLONOSCOPY 02/29/2012 - 02/27/2013 Medical History Medical History Date Comments PONV (postoperative nausea and vomiting) Family History Medical History Relation Name Comments Arthritis Father Family history of arthritis - (Added by TW Conv) Diabetes Maternal Grandfather Family history of diabetes mellitus - Relation: Grandfather (Added by TW Conv) Diabetes Mother Family history of diabetes mellitus - (Added by TW Conv) Arthritis Other Family history of arthritis - Relation: Grandmother (Added by TW Conv) Relation Name Status Comments Father Maternal Grandfather Mother Other Social History Tobacco Use Types Packs/Day Years [...] on file Legal Sex Female 12:16 AM OPHTHALMIC MEDICAL ASSISTANT Gender Identity Not on file Sexual Orientation Not on file Obstetrics History Last Filed Vital Signs Vital Sign Reading [...] 05/24/2023 7:05 AM CDT Plan of Treatment Health Maintenance Due Date Last Done Comments Breast Cancer Screening-Mammogram 1957 Colon Cancer Screening-Colonoscopy 1955 Depression Screening 1955 Hepatitis C Screening 1955 Osteoporosis Screening-Bone Density Scan 1957 Hepatitis B Screening 06/05/1975 Pneumococcal vaccine 65+ (1 of 1 - PCV) 06/05/2007 Zoster Vaccine (1 of 2) 06/05/2007 Well Visit 65+ 2022 Covid-19 Vaccine (3 - season) 2023, 05/12/2020 Influenza Vaccine (#1) 2023 , 01/17/2019, 12/09/2015 Fall Risk Assessment 05/23/2024 05/24/2023 DTaP/Tdap/Td Vaccine (2 - Td or Tdap) 11/12/2026 Medical Devices Implanted Type Area Director Emergency Services Device Identifier Shelf Expiration Date Model / Serial / Lot [employer] Fiberloop 3.2mm Drill Pin Needle Shoehorn Cannula Kit Suture Ar-2290 - [id number] Implanted:Qty: 1 on 05/24/2023 by Sneha Willis MD at [facility] Right: Shoulder [employer] [id number] 01/28/2028 AR-2290 / / [id number] [employer] Suture [place] Triple Loaded Knotless Fibertak 2.6mm Ar-3633sp - [id number] Implanted:Qty: 1 on 05/24/2023 by Sneha Willis MD at [facility] [place] Right: Shoulder [employer] 03/30/2028 AR-3633SP / / [id number] [employer] Ar-2324 Bcm [place]ivelock 4.75mm 24.5mm Self Punch Vent Shoulder [place] Suture - [id number] Implanted:Qty: 1 on 05/24/2023 by Sneha Willis MD at [facility] Right: Shoulder [employer] 12/28/2026 AR-2324BC M / / [id number] [employer] Ar-2324 Bcm [place]ivel[place] 4.75mm 24.5mm Self Punch Vent Shoulder [place] Suture - [id number] Implanted:Qty: 1 on 05/24/2023 by Sneha Willis MD at [facility] [place] Right: Shoulder [employer] 12/28/2026 AR-2324BC M / / [id number] Insurance [facility] Care Teams Veneer Jointer Returner Relationship Specialty Start Date End Date Mary Ann Betancourt MD PCP - General 02/14/07
--- OUTSIDE RECORDS SUMMARY | 2024-05-11 15:29 | XMS_ITS | Referral Summary ---
Author Organization [facility] Address [address] [facility] [place] [address] Care Team Providers Care University Services Program Associate Name Role Phone Ruthann Pepper MD Unavailable [phone] Yonatan Quick MD Unavailable [phone] Mary Ann Betancourt MD Primary Care Provider [phone] Source Comments [facility],non-owned Affiliates and Associated Physician Practices is amultiple site organization consisting of ambulatory clinics and hospital sitesin [place], [place], [place] and [place]. This disclosure is being madepursuant to the Care Everywhere program and may not contain all information available regarding this patient. Last updated 17.[facility] Encounters Date Type Department Care Team Description 03/16/2024 Orders Only [facility] [address] [place] [address] Surjit Raygoza, RN Microalbuminuria 03/16/2024 Orders Only [facility] [address] [place] [address] Surjit Raygoza, RN Microalbuminuria 03/16/2024 Travel 03/16/2024 10:30 AM DOOR HANGER Office Visit [facility] - Nephrology [address] [place] [phone] Virginia Andrews MD Albuminuria (Primary Dx); Primary hypertension; Family history of kidney disease from Last 3 Months Allergies No known active allergies Medications * [...] tablet by mouth once daily Active Coenzyme J13-Gxgih 3 Fatty Acd (CoQmax [place]) 100 MG CAPS Take 100 mg/day by [...] or KPD Remote donor for brother in [place] Acceptable SEROLOGIES CMV Recent Labs Component Name [...] Qualitative Recent Labs Component Name 09/20/22 0821 [id number] Negative Acceptable QUANT Gold Recent Labs Component [...] results for input(s): PSA in the last [address] hours. N/A Mammogram BiRads 1 - negative [...] Prediction Completed Completed by: Surjit Raygoza RN [facility] Date: 09/30/2022 Immunizations Name Administration Dates Next Due TDAP (7yrs+) 11/12/2016 Social History Tobacco Use Types Packs/Day Years [...] Comments Blood Pressure 149/83 03/16/2024 11:19 AM DOOR HANGER Pulse 100 03/16/2024 11:19 AM DOOR HANGER Temperature 36.7 C (98 F) 03/16/2024 10:48 AM DOOR HANGER Respiratory Rate 20 03/16/2024 10:48 AM DOOR HANGER Oxygen Saturation 99% 08/05/2023 8:23 AM CDT Inhaled Oxygen Concentration - - Weight 73.9 kg (163 lb) 03/16/2024 10:48 AM DOOR HANGER Height 163 cm (5' 4.17 ) 10/01/2022 10:26 AM CDT Body Mass Index 27.83 10/01/2022 10:26 AM CDT Plan of Treatment Not on file Procedures Procedure Name Priority Date/Time Associated Diagnosis Comments CYSTATIN C LEVEL Routine 03/09/2024 9:36 AM DOOR HANGER Albuminuria White coat syndrome with diagnosis of hypertension Willing to be kidney donor URINALYSIS W/MICROSCOPIC REFLEX TO CULTURE Routine 03/09/2024 9:36 AM DOOR HANGER Albuminuria White coat syndrome with diagnosis of hypertension Willing to be kidney donor PROTEIN CREATININE RATIO URINE RANDOM PNL Routine 03/09/2024 9:36 AM DOOR HANGER Albuminuria White coat syndrome with diagnosis of hypertension Willing to be kidney donor MICROALB/CREAT RATIO URINE RANDOM PANEL Routine 03/09/2024 9:36 AM DOOR HANGER Albuminuria White coat syndrome with diagnosis of hypertension Willing to be kidney donor PTH INTACT Routine 03/09/2024 9:36 AM DOOR HANGER Albuminuria White coat syndrome with diagnosis of hypertension Willing to be kidney donor CBC W AUTO DIFFERENTIAL Routine 03/09/2024 9:36 AM DOOR HANGER Albuminuria White coat syndrome with diagnosis of hypertension Willing to be kidney donor RENAL FUNCTION PANEL Routine 03/09/2024 9:36 AM DOOR HANGER Albuminuria White coat syndrome with diagnosis of hypertension Willing to be kidney donor HEPATITIS C AB SCREEN RFLX NAAT QUANT STAT 09/20/2022 8:21 AM CDT Willing to be kidney donor from Last 3 Months or Most Recently Relevant to Health Maintenance Results * CYSTATIN C LEVEL (03/09/2024 9:36 AM DOOR HANGER) Pathologist [facility] Cystatin C 0.90 0.72 - 1.16 mg/L [facility] INSURANCE BILL Blood BLOOD SPECIMEN / Unknown 03/09/2024 9:36 AM DOOR HANGER 03/09/2024 Narrative [facility] INSURANCE BILL - 03/13/2024 7:08 AM DOOR HANGER Performed at: - [facility] [id number] Child Care Director: Rangel Sanchez MD, Phone: [phone] Specimen Comment: A courtesy copy of this report has been sent to Family Medicine of Specimen Comment: Tori Virginia Andrews MD LAB - CHEMISTRY EZEKIEL ROBLERO [facility] INSURANCE BILL [address] [place] [address] * (ABNORMAL) URINALYSIS W/MICROSCOPIC REFLEX TO CULTURE (03/09/2024 9:36 AM DOOR HANGER) Pathologist [facility] Specific [place] UA 1.017 1.005 - 1.030 [facility] INSURANCE [...] reflexed to a Urine Culture. Performed at: - [facility] [place] [address] [place], [place] [id number] Child Care Director: Gumaro Francis PhD, Phone: [phone] WBC UA None seen 0 - 5 [...] seen/Few [facility] INSURANCE BILL Comment: Performed at: [address] [id number] Child Care Director: Gumaro Francis PhD, Phone: [phone] Urine Culture Comprehensive Final report [facility] INSURANCE BILL Result 1 Comment [facility] INSURANCE BILL Comment:No growth in 36 - 48 hours. Urine URINE SPECIMEN OBTAINED BY CLEAN CATCH PROCEDURE / Unknown 03/09/2024 9:36 AM DOOR HANGER 03/09/2024 Narrative [facility] INSURANCE BILL - 03/12/2024 3:07 PM DOOR HANGER Performed at: [address] [place] [id number] Child Care Director: Gumaro Francis PhD, Phone: [phone] Virginia Andrews MD LAB - URINALYSIS ORD ERABLES [facility] INSURANCE BILL [address] [place] [address] * (ABNORMAL) MICROALB/CREAT RATIO URINE RANDOM PANEL (03/09/2024 9:36 AM DOOR HANGER) Microalbumin Urine 47.4 Not Estab. ug/mL [facility] INSURANCE BILL Microalbumin/Crea tinine Ratio 53(H) 0 - 29 mg/g creat [facility] INSURANCE BILL Comment: Normal: 0 - 29 Moderately increased: 30 - 300 Severely increased: >300 Urine URINE SPECIMEN OBTAINED BY CLEAN CATCH PROCEDURE / Unknown 03/09/2024 9:36 AM DOOR HANGER 03/09/2024 Narrative [facility] INSURANCE BILL - 03/10/2024 7:08 AM DOOR HANGER Performed at: - [facility] [address] [id number] Child Care Director: Gumaro Francis PhD, Phone: [phone] Virginia Andrews MD LAB - URINE CHEMISTR Y ORDERABLES Performing Organization Address City/[facility] Co de Phone Number [facility] INSURANCE BILL [address] [place] [address] * PTH INTACT (03/09/2024 9:36 AM DOOR HANGER) [facility] PTH Intact 17 15 - 65 pg/mL [facility] INSURANCE BILL Blood BLOOD SPECIMEN / Unknown 03/09/2024 9:36 AM DOOR HANGER 03/09/2024 Narrative [facility] INSURANCE BILL - 03/11/2024 1:06 PM DOOR HANGER Performed at: - [facility] [address] [id number] Child Care Director: Gumaro Francis PhD, Phone: [phone] Virginia Andrews MD LAB - CHEMISTRY ORDE RABLES Performing Organization Address City/[facility]/ZIP Co de Phone Number [facility] INSURANCE BILL [address] [place] [address] * CBC WITH DIFFERENTIAL (03/09/2024 9:36 AM DOOR HANGER) [facility] WBC 6.6 3.4 - 10.8 x10E3/uL [facility] [...] BLOOD SPECIMEN / Unknown 03/09/2024 9:36 AM DOOR HANGER 03/09/2024 Narrative [facility] INSURANCE BILL - 03/10/2024 7:08 AM DOOR HANGER Performed at: - [address] [id number] Child Care Director: Gumaro Francis PhD, Phone: [phone] Virginia Andrews MD LAB - HEMATOLOGY ORD ERABLES [facility] INSURANCE BILL [address] [place] [address] * RENAL FUNCTION PANEL (03/09/2024 9:36 AM DOOR HANGER) Glucose 90 70 - 99 mg/dL [facility] [...] BLOOD SPECIMEN / Unknown 03/09/2024 9:36 AM DOOR HANGER 03/09/2024 Narrative [facility] INSURANCE BILL - 03/10/2024 7:08 AM DOOR HANGER Performed at: [address] [id number] Child Care Director: Gumaro Francis PhD, Phone: [phone] Virginia Andrews MD LAB - CHEMISTRY ORDE RABLES Performing Organization Address City/[facility] Co de Phone Number [facility] INSURANCE BILL [address] [place] [address] * (ABNORMAL) PROTEIN CREATININE RATIO URINE RANDOM PNL (03/09/2024 9:36 AM DOOR HANGER) Pathologist [facility] Creatinine Urine 88.8 Not Estab. mg/dL [facility] INSURANCE BILL Protein Urine 19.7 Not Estab. mg/dL [facility] INSURANCE BILL Protein/Creatin ine Ratio 222(H) 0 - 200 mg/g creat [facility] INSURANCE BILL Urine URINE SPECIMEN OBTAINED BY CLEAN CATCH PROCEDURE / Unknown 03/09/2024 9:36 AM DOOR HANGER 03/09/2024 Narrative [facility] INSURANCE BILL - 03/10/2024 7:08 AM DOOR HANGER Performed at: [address] [id number] Child Care Director: Gumaro Francis PhD, Phone: [phone] Virginia Andrews MD LAB - URINE CHEMISTR Y ORDERABLES Performing Organization Address City/[facility]/ZIP Co de Phone Number [facility] [address] [place] [address] * HEPATITIS C AB SCREEN RFLX NAAT QUANT (09/20/2022 8:21 AM CDT) Hepatitis C Antibody Non-react onesimo Non-reac tive 09/20/2022 9:06 AM CDT [facility] Comment:Hepatitis C Antibody screen indicates [...] Torres MD LAB - CHEMISTR Y ORDERABLES [facility] [address] [place] [address], [facility] [phone] from Last 3 Months or Most Recently Relevant to Health Maintenance Care Teams University Services Program Associate Relationship Specialty Start Date End Date Mary Ann Betancourt MD [address] [place] [address] PCP - General Family Medicine 12/24/22 Ruthann Pepper MD [address] [facility] [address] [place] [id number] Obstetrics and Gynecology 10/01/22 Yonatan Quick MD [address] [address] Sewing Department Supervisor Obstetrics and Gynecology 10/01/22
--- OUTSIDE RECORDS SUMMARY | 2024-05-11 15:29 | XMS_ITS | Patient Health Summary ---
Author Organization [facility] [employer] Address [address] [place] [address] Care Team Providers Care Lead Ramp Agent Name Role Phone Ruthann Pepper MD Unavailable [phone] Yonatan Quick MD Unavailable [phone] Mary Ann Betancourt MD Primary Care Provider [phone] Note from [facility],non-owned Affiliates and Associated Physician Practices is amultiple site organization consisting of ambulatory clinics and hospital sitesin [place], [place], [place] and [place]. This disclosure is being madepursuant to the Care Everywhere program and may not contain all information available regarding this patient. Last updated 17.[facility] Allergies No known active allergies Medications * Be aware that medications may not be up to date on this document. Alwaysverify current medications with the patient. * Prasterone, DHEA, (DHEA MICRONIZED PO) Take 5 mg/day by mouth once daily * progesterone 300 mg ERT 300 mg tablet Take 1 (one) tablet by mouth once daily * Coenzyme F58-Lwpfe 3 Fatty Acd (CoQmax [place]) 100 MG CAPS Take 100 mg/day by mouth once daily * Other Take by mouth once daily Thyroid 2.75 grains * estradiol (Estrace) 2 MG tablet Take 1 (one) tablet by mouth once daily * bioidentical testosterone cream compound Apply to affected area once daily Strength: 65mg /ml * vitamin D3 (D3 5000) 125 MCG (5000 UT) capsule Take 1 (one) capsule by mouth once daily * Turmeric 500 MG * lisinopril (Prinivil; Zestril) 2.5 MG tablet Take 1 (one) tablet by mouth once daily Active Problems Problem Noted Date Diagnosed Date Family history of kidney disease 03/18/2024 HTN (hypertension), benign 03/18/2024 Microalbuminuria 08/05/2023 Willing to be kidney donor 08/19/2022 Immunizations * TDAP (7yrs+)(Given 11/12/2016) Social History Tobacco Use Types Packs/Day Years [...] Comments Blood Pressure 149/83 03/16/2024 11:19 AM BUTTER PRODUCTION SUPERVISOR Pulse 100 03/16/2024 11:19 AM BUTTER PRODUCTION SUPERVISOR Temperature 36.7 C (98 F) 03/16/2024 10:48 AM BUTTER PRODUCTION SUPERVISOR Respiratory Rate 20 03/16/2024 10:48 AM BUTTER PRODUCTION SUPERVISOR Oxygen Saturation 99% 08/05/2023 8:23 AM CDT Inhaled Oxygen Concentration - - Weight 73.9 kg (163 lb) 03/16/2024 10:48 AM BUTTER PRODUCTION SUPERVISOR Height 163 cm (5' 4.17 ) 10/01/2022 10:26 AM CDT Body Mass Index 27.83 10/01/2022 10:26 AM CDT Procedures * CYSTATIN C LEVEL(Performed 03/09/2024) Performed for Albuminuria, White coat syndrome with diagnosis of hypertension, Willing to be kidneydonor * URINALYSIS W/MICROSCOPIC REFLEX TO CULTURE(Performed 03/09/2024) Performed for Albuminuria, White coat syndrome with diagnosis of hypertension, Willing to be kidneydonor * PROTEIN CREATININE RATIO URINE RANDOM PNL(Performed 03/09/2024) Performed for Albuminuria, White coat syndrome with diagnosis of hypertension, Willing to be kidneydonor * MICROALB/CREAT RATIO URINE RANDOM PANEL(Performed 03/09/2024) Performed for Albuminuria, White coat syndrome with diagnosis of hypertension, Willing to be kidneydonor * PTH INTACT(Performed 03/09/2024) Performed for Albuminuria, White coat syndrome with diagnosis of hypertension, Willing to be kidneydonor * CBC W AUTO DIFFERENTIAL(Performed 03/09/2024) Performed for Albuminuria, White coat syndrome with diagnosis of hypertension, Willing to be kidneydonor * RENAL FUNCTION PANEL(Performed 03/09/2024) Performed for Albuminuria, White coat syndrome with diagnosis of hypertension, Willing to be kidneydonor * CYSTATIN C WITH EGFR(Performed 08/16/2023) * RENAL FUNCTION PANEL(Performed 08/16/2023) Performed for Albuminuria, White coat syndrome with diagnosis of hypertension * CBC W AUTO DIFFERENTIAL(Performed 08/16/2023) Performed for Albuminuria, White coat syndrome with diagnosis of hypertension * PTH INTACT(Performed 08/16/2023) Performed for Albuminuria, White coat syndrome with diagnosis of hypertension * MICROALB/CREAT RATIO URINE RANDOM PANEL(Performed 08/16/2023) Performed for Albuminuria, White coat syndrome with diagnosis of hypertension * URINALYSIS W/MICROSCOPIC REFLEX TO CULTURE(Performed 08/16/2023) Performed for Albuminuria, White coat syndrome with diagnosis of hypertension * PROTEIN CREATININE RATIO URINE RANDOM PNL(Performed 08/16/2023) Performed for Albuminuria, White coat syndrome with diagnosis of hypertension * CULTURE URINE REFLEXED I(Performed 08/16/2023) * CYSTATIN C WITH EGFR(Performed 12/31/2022) * MICROALB/CREAT RATIO URINE RANDOM PANEL(Performed 12/31/2022) Performed for Albuminuria * PROTEIN CREATININE RATIO URINE RANDOM PNL(Performed 12/31/2022) Performed for Albuminuria * URINALYSIS W/MICROSCOPIC REFLEX TO CULTURE(Performed 12/31/2022) Performed for Albuminuria * RENAL FUNCTION PANEL(Performed 12/31/2022) Performed for Albuminuria * CULTURE URINE REFLEXED I(Performed 12/31/2022) * PROTEIN URINE RANDOM QUANTITATIVE(Performed 11/16/2022) * PHOSPHORUS BLOOD(Performed 11/16/2022) Performed for Willing to be kidney donor * MICROALB/CREAT RATIO URINE RANDOM PANEL(Performed 11/16/2022) Performed for Willing to be kidney donor * CARDIAC EKG ORDER(Performed 10/05/2022) * ECHO STRESS EXERCISE W CONTRAST(Performed 10/01/2022) Performed for Willing to be kidney donor * ECHO COMPLETE(Performed 10/01/2022) Performed for Willing to be kidney donor * PROTEIN URINE RANDOM QUANTITATIVE(Performed 10/01/2022) Performed for Willing to be kidney donor * MICROALB/CREAT RATIO URINE RANDOM PANEL(Performed 10/01/2022) Performed for Willing to be kidney donor * CREATININE URINE RANDOM(Performed 10/01/2022) Performed for Willing to be kidney donor * PHOSPHORUS URINE RANDOM(Performed 10/01/2022) Performed for Willing to be kidney donor * PHOSPHORUS BLOOD(Performed 10/01/2022) Performed for Willing to be kidney donor * VITAMIN D 25-HYDROXY(Performed 10/01/2022) Performed for Willing to be kidney donor * PTH INTACT W/O CALCIUM(Performed 10/01/2022) Performed for Willing to be kidney donor * CARDIAC EKG ORDER(Performed 09/22/2022) * XR CHEST 2VW(Performed 09/20/2022) Performed for Willing to be kidney donor * CT ANGIO ABDOMEN PELVIS(Performed 09/20/2022) Performed for Willing to be kidney donor * NM RENAL GFR STUDY(Performed 09/20/2022) Performed for Willing to be kidney donor * NM RENAL SCAN W FLOW AND FUNCTION(Performed 09/20/2022) Performed for Willing to be kidney donor * EKG 12-LEAD(Performed 09/20/2022) Performed for Willing to be kidney donor * CYSTATIN C REFLEX(Performed 09/20/2022) Performed for Willing to be kidney donor * PHOSPHORUS BLOOD(Performed 09/20/2022) Performed for Willing to be kidney donor * NICOTINE + METABOLITES BLOOD(Performed 09/20/2022) Performed for Willing to be kidney donor * MICROALB/CREAT RATIO URINE RANDOM PANEL(Performed 09/20/2022) Performed for Willing to be kidney donor * HIV/HCV/HBV GENEVA DONOR(Performed 09/20/2022) Performed for Willing to be kidney donor * HIV 1/0/2 RFLX TO WB DONOR(Performed 09/20/2022) Performed for Willing to be kidney donor * HEPATITIS C AB SCREEN RFLX NAAT QUANT(Performed 09/20/2022) Performed for Willing to be kidney donor * HEPATITIS B SURFACE ANTIGEN W RFLX CONFIRMATION(Performed 09/20/2022) Performed for Willing to be kidney donor * HEPATITIS B SURFACE ANTIBODY(Performed 09/20/2022) Performed for Willing to be kidney donor * HEPATITIS B CORE ANTIBODY TOTAL(Performed 09/20/2022) Performed for Willing to be kidney donor * SHIRLEY-LIU VIRUS AB VIRAL CAPSID IGG/IGM(Performed 09/20/2022) Performed for Willing to be kidney donor * CYSTATIN C WITH EGFR(Performed 09/20/2022) Performed for Willing to be kidney donor * CYTOMEGALOVIRUS ANTIBODY IGM BLOOD(Performed 09/20/2022) Performed for Willing to be kidney donor * CYTOMEGALOVIRUS ANTIBODY IGG BLOOD(Performed 09/20/2022) Performed for Willing to be kidney donor * COMPREHENSIVE METABOLIC PANEL(Performed 09/20/2022) Performed for Willing to be kidney donor * CBC W AUTO DIFFERENTIAL(Performed 09/20/2022) Performed for Willing to be kidney donor * ALCOHOL ETHYL BLOOD(Performed 09/20/2022) Performed for Willing to be kidney donor * QUANTIFERON-TB GOLD PLUS 4-TUBE(Performed 09/20/2022) Performed for Willing to be kidney donor * PTT [facility](Performed 09/20/2022) Performed for Willing to be kidney donor * PT-INR [facility](Performed 09/20/2022) Performed for Willing to be kidney donor * STRONGYLOIDES ANTIBODY IGG(Performed 09/20/2022) Performed for Willing to be kidney donor * SYPHILIS ANTIBODY CASCADING REFLEX(Performed 09/20/2022) Performed for Willing to be kidney donor * TRYPANOSOMA ANTIBODY IGG(Performed 09/20/2022) Performed for Willing to be kidney donor * URIC ACID BLOOD(Performed 09/20/2022) Performed for Willing to be kidney donor * URINALYSIS REFLEX MICROSCOPIC REFLEX CULTURE(Performed 09/20/2022) Performed for Willing to be kidney donor * [place] VIRUS ANTIBODY IGG/IGM PANEL(Performed 09/20/2022) Performed for Willing to be kidney donor * URINE DRUG SCREEN IMMUNOASSAY(Performed 09/20/2022) Performed for Willing to be kidney donor * TYPE + SCREEN PANEL(Performed 09/20/2022) Performed for Willing to be kidney donor * DERMATOPATHOLOGY(Performed 04/08/2020) Results * CYSTATIN C LEVEL (03/09/2024 9:36 AM BUTTER PRODUCTION SUPERVISOR) Cystatin C 0.90 0.72 - 1.16 mg/L [facility] INSURANCE BILL Blood BLOOD SPECIMEN / Unknown 03/09/2024 9:36 AM BUTTER PRODUCTION SUPERVISOR 03/09/2024 Narrative [facility] INSURANCE BILL - 03/13/2024 7:08 AM BUTTER PRODUCTION SUPERVISOR Performed at: [facility] [address] [id number] Cycling Instructor: Rangel Sanchez MD, Phone: [phone] Specimen Comment: A courtesy copy of this report has been sent to [facility] of Specimen Comment: Tori Virginia Andrews MD LAB - CHEMISTRY EZEKIEL ROBLERO [facility] INSURANCE BILL [address] [place] [address] * (ABNORMAL) URINALYSIS W/MICROSCOPIC REFLEX TO CULTURE (03/09/2024 9:36 AM BUTTER PRODUCTION SUPERVISOR) Only the most recent of3 resultswithin the time period is included. Specific [place] UA 1.017 1.005 - 1.030 [facility] INSURANCE [...] reflexed to a Urine Culture. Performed at: [facility] [address] [place], [place] [id number] Cycling Instructor: Gumaro Francis PhD, Phone: [phone] WBC UA None seen 0 - 5 [...] seen/Few [facility] INSURANCE BILL Comment: Performed at: [address] [id number] Cycling Instructor: Gumaro Francis PhD, Phone: [phone] Urine Culture Comprehensive Final report [facility] INSURANCE BILL Result 1 Comment [facility] INSURANCE BILL Comment:No growth in 36 - 48 hours. Urine URINE SPECIMEN OBTAINED BY CLEAN CATCH PROCEDURE / Unknown 03/09/2024 9:36 AM BUTTER PRODUCTION SUPERVISOR 03/09/2024 Narrative [facility] INSURANCE BILL - 03/12/2024 3:07 PM BUTTER PRODUCTION SUPERVISOR Performed at: [address] [id number] Cycling Instructor: Gumaro Francis PhD, Phone: [phone] Virginia Andrews MD LAB - URINALYSIS ORD ERABLES Performing Organization Address [facility] de Phone Number [facility] INSURANCE BILL [address] [place] [address] * (ABNORMAL) MICROALB/CREAT RATIO URINE RANDOM PANEL (03/09/2024 9:36 AM BUTTER PRODUCTION SUPERVISOR) Only the most recent of6 resultswithin the time period is included. Microalbumin Urine 47.4 Not Estab. ug/mL [facility] INSURANCE BILL Microalbumin/Crea tinine Ratio 53(H) 0 - 29 mg/g creat [facility] INSURANCE BILL Comment: Normal: 0 - 29 Moderately increased: 30 - 300 Severely increased: >300 Urine URINE SPECIMEN OBTAINED BY CLEAN CATCH PROCEDURE / Unknown 03/09/2024 9:36 AM BUTTER PRODUCTION SUPERVISOR 03/09/2024 Narrative [facility] INSURANCE BILL - 03/10/2024 7:08 AM BUTTER PRODUCTION SUPERVISOR Performed at: [address] [id number] Cycling Instructor: Gumaro Francis PhD, Phone: [phone] Virginia Andrews MD LAB - URINE CHEMISTR Y ORDERABLES Performing Organization Address [facility] Co de Phone Number [facility] INSURANCE BILL [address] [place] [address] * PTH INTACT (03/09/2024 9:36 AM BUTTER PRODUCTION SUPERVISOR) Only the most recent of2 resultswithin the time period is included. PTH Intact 17 15 - 65 pg/mL [facility] INSURANCE BILL Blood BLOOD SPECIMEN / Unknown 03/09/2024 9:36 AM BUTTER PRODUCTION SUPERVISOR 03/09/2024 Narrative [facility] INSURANCE BILL - 03/11/2024 1:06 PM BUTTER PRODUCTION SUPERVISOR Performed at: 01 - [address] [id number] Cycling Instructor: Gumaro Francis PhD, Phone: [phone] Virginia Andrews MD LAB - CHEMISTRY EZEKIEL ROBLERO [facility] INSURANCE BILL [address] [place] [address] * CBC WITH DIFFERENTIAL (03/09/2024 9:36 AM BUTTER PRODUCTION SUPERVISOR) Only the most recent of3 resultswithin the time period is included. Pathologist [facility] WBC 6.6 3.4 - 10.8 x10E3/uL [facility] [...] BLOOD SPECIMEN / Unknown 03/09/2024 9:36 AM BUTTER PRODUCTION SUPERVISOR 03/09/2024 Narrative [facility] INSURANCE BILL - 03/10/2024 7:08 AM BUTTER PRODUCTION SUPERVISOR Performed at: 01 - [address] [id number] Cycling Instructor: Gumaro Francis PhD, Phone: [phone] Virginia Andrews MD LAB - HEMATOLOGY ORD ERABLES [facility] INSURANCE BILL [address] [place] [address] * RENAL FUNCTION PANEL (03/09/2024 9:36 AM BUTTER PRODUCTION SUPERVISOR) Only the most recent of3 resultswithin the time period is included. Glucose 90 70 - 99 mg/dL [facility] [...] BLOOD SPECIMEN / Unknown 03/09/2024 9:36 AM BUTTER PRODUCTION SUPERVISOR 03/09/2024 Narrative [facility] INSURANCE BILL - 03/10/2024 7:08 AM BUTTER PRODUCTION SUPERVISOR Performed at: [address] [place] [id number] Cycling Instructor: Gumaro Francis PhD, Phone: [phone] Virginia Andrews MD LAB - CHEMISTRY ORDE RABLES Performing Organization Address [facility] de Phone Number [facility] INSURANCE BILL [address] [place] [phone] * (ABNORMAL) PROTEIN CREATININE RATIO URINE RANDOM PNL (03/09/2024 9:36 AM BUTTER PRODUCTION SUPERVISOR) Only the most recent of3 resultswithin the time period is included. Pathologist [facility] Creatinine Urine 88.8 Not Estab. mg/dL [facility] INSURANCE BILL Protein Urine 19.7 Not Estab. mg/dL [facility] INSURANCE BILL Protein/Creatin ine Ratio 222(H) 0 - 200 mg/g creat [facility] INSURANCE BILL Urine URINE SPECIMEN OBTAINED BY CLEAN CATCH PROCEDURE / Unknown 03/09/2024 9:36 AM BUTTER PRODUCTION SUPERVISOR 03/09/2024 Narrative [facility] INSURANCE BILL - 03/10/2024 7:08 AM BUTTER PRODUCTION SUPERVISOR Performed at: [address] [place] [id number] Cycling Instructor: Gumaro Francis PhD, Phone: [phone] Virginia Andrews MD LAB - URINE CHEMISTR Y ORDERABLES Performing Organization Address [facility] de Phone Number [facility] INSURANCE BILL [address] [place] [address] * CYSTATIN C WITH REFLEX TO EGFR (08/16/2023 8:43 AM CDT) Only the most recent of3 resultswithin the time period is included. Cystatin C 0.89 0.52 - 1.14 mg/L [facility] eGFR by MDRD 83 > OR = 60 mL/min/1.7 3m2 [facility] Comment: Test Performed at: [facility] [address] [address] CARLITOS HARRIS MD 08/16/2023 8:43 AM CDT 08/16/2023 8:46 AM CDT Virginia Andrews MD LAB - CHEMISTRY MARYJolie ROBLERO Performing Organization Address [facility] Co de Phone Number [employer] [phone] [place] [address] * CULTURE URINE REFLEXED I (08/16/2023 8:43 AM CDT) Only the most recent of2 resultswithin the time period is included. Reflexive Urine Culture See Below [facility] Comment: NO CULTURE INDICATED Test Performed at: [facility] [address] [place] [address] CARLITOS HARRIS MD 08/16/2023 8:43 AM CDT 08/16/2023 8:46 AM CDT Virginia Andrews MD LAB - MICROBIOLOGY O RDERAANTHONY Performing Organization Address [facility] Co de Phone Number [facility] [phone] [place] [address] * PROTEIN URINE RANDOM QUANTITATIVE (11/16/2022 12:10 PM CDT) Only the most recent of2 resultswithin the time period is included. Protein Urine 12.3 Not Estab. mg/dL [facility] ACCOUNT BILL 11/16/2022 12:1 0 PM CDT 11/16/2022 Narrative Resulting Agency Comment Lab [facility] performed at: [facility] [address] [facility] [id number] Virginia Andrews MD LAB - URINE CHEMISTR Y ORDERABLES Performing Organization Address City/[facility] Co de Phone Number [facility] ACCOUNT BILL [address] [place] [address] * (ABNORMAL) PHOSPHORUS BLOOD (11/16/2022 12:10 PM CDT) Only the most recent of3 resultswithin the time period is included. Phosphorus 2.7(L) 3.0 - 4.3 mg/dL [facility] ACCOUNT BILL Blood BLOOD SPECIMEN / Unknown 11/16/2022 12:10 PM CDT 11/16/2022 Narrative Resulting Agency Comment Lab Testing performed at: [facility] [address] [facility] [id number] Virginia Andrews MD LAB - CHEMISTRY EZEKIEL ROBLERO [facility] ACCOUNT BILL [address] [place] [address] * CARDIAC EKG ORDER (10/05/2022 3:04 PM CDT) Only the most recent of2 resultswithin the time period is included. Narrative 10/05/2022 3:04 PM CDT Ordered by an unspecified provider. Scanned Document CARDIAC SERVICES ORD ERABLES * ECHO STRESS EXERCISE W CONTRAST (10/01/2022 9:52 AM CDT) BSA 1.09405714 [id number] m2 [facility]SM CV FUJI PACS Target HR 132 [facility] CV FUJ I PACS Max Age Predicted HR 155 [facility] CV FUJI PACS LV biplane EF 71 54 - 74 % [facility] CV FUJI PACS LV A2C EF 72 52 - 76 % SSM CV FUJ I PACS LV A4C EF 72 46 - 78 % SSM CV FUJ I PACS LV stroke vol index A4C MOD 50.992 ml SSM CV FUJI PACS LV ESV BP 24.846 14 - 42 mL SSM CV FU JI PACS LV ESV index BP 13.4 8 - 24 mL/m2 SSM CV FUJI PACS LV ESV A2C 19.871 10 - 54 mL SSM CV F UJI PACS LV EDV BP 86.279 mL SSM CV FUJ I PACS LV ESV A4C 29.326 12 - 60 mL SSM CV F UJI PACS LV EDV index BP 46.7 29 - 61 mL/m2 SSM CV FUJI PACS LV EDV A2C 103.741 41 - 133 mL SSM CV FUJI PACS LV EDV A4C 70.863 mL SSM CV FU JI PACS LV Wolff A2C 8.334 cm SSM CV F UJI PACS LV Wolff A4C 8.119 cm SSM CV F UJI PACS [id number] 6.185 cm SSM CV FUJ I PACS [id number] 6.654 cm SSM CV FUJ I PACS LV stroke vol BP 61.433 mL SSM CV FUJI PACS Angina Index 0 SSM CV FU[facility]I PACS Exercise duration (min) 7 min S[facility] CV F[facility]I PACS Exercise duration (sec) 53 sec SSM CV FUJI PACS Peak METS Achieved 10.1 METS SSM CV FUJI PACS Target HR Percent 116 % SSM CV FUJI PACS Baseline HR 76 bpm SSM CV F UJI PACS Stress peak HR 153 bpm SSM C V FUJI PACS Max HR Percent 99 % SSM C V FUJI PACS Baseline BP 152/77 mmHg SSM CV F UJI PACS Post peak BP 180/132 mmHg SSM CV FUJI PACS Actual / Predicted METS 161.6 % [facility]SM CV F[facility]I PACS Base ST Depression (mm) 0 mm SSM CV FU[facility]I PACS Seo Treadmill Score 8 SSM [address] FUJI P[address] Depression (mm) 0 mm SSM CV FUJI PACS Anatomical Region Laterality Modality Ultrasound Narrative 10/01/2022 11:13 AM CDT Stress: Overall, the patient's exercise capacity was above averate for their age. The patient exercised for 7 min and 53 sec and had a maximal HR of 153 bpm (99 % of MPHR) 10.1 METS. Stress ECG: The ECG was negative for ischemia. Post-stress Impression: Maximal exercise stress echocardiogram is negative for stress induced ischemia. Study Details Study quality was good. A limited 2D echocardiogram was performed. The apical and parasternal views were obtained. Definity ultrasound enhancing agent used. Resting ECG Poor r wave progresstion. Resting ECG shows no clinically relevant ST-segment deviation. The ECG shows normal sinus rhythm. Stress Findings A Michael protocol stress test was performed. Overall, the patient's exercise capacity was above averate for their age. The patient exercised for 7 min and 53 sec and had a maximal HR of 153 bpm (99 % of MPHR) 10.1 METS. The patient experienced no angina during the test. The test was stopped because the patient experienced fatigue. The test was stopped because the target heart rate was achieved. Blood pressure demonstrated a normal response and heart rate demonstrated a normal response to stress. Stress ECG No clinically relevant ST deviation was noted. Arrhythmias during stress: rare PVCs. Arrhythmias during recovery: rare PVCs. The ECG was negative for ischemia. Echo Post Stress Left ventricle cavity appears normal post-stress. The left ventricle systolic function is normal post-stress. The post-stress echo showed normal wall motion. Study Impression Maximal exercise stress echocardiogram is negative for stress induced ischemia. Procedure Note Trina Son MD - 10/01/2022 Stress: Overall, the patient's exercise capacity was above averate fortheir age. The patient exercised for 7 min and 53 sec and had a maximal HRof 153 bpm (99 % of MPHR) 10.1 METS. Stress ECG: The ECG was negative for ischemia. Post-stress Impression: Maximal exercise stress echocardiogram isnegative for stress induced ischemia. Mell Torres MD ECHO CUPID * ECHO COMPLETE (10/01/2022 9:05 AM CDT) [facility] Signature BSA 1.83 m2 SSM CV FUJ I PACS LV biplane EF 57 54 - 74 % SSM CV FUJI PACS LV A2C EF 55 52 - 76 % SSM CV FUJ I PACS LV A4C EF 58 46 - 78 % SSM CV FUJ I PACS LVOT stroke vol 66.64 cm3 SSM CV FUJI PACS LV stroke vol 2D teich 79.732 ml SSM CV FUJI PACS LV stroke vol index A4C MOD 51.581 ml SSM CV FUJI PACS LVIDd 4.88 3.8 - 5.2 cm SSM CV FUJI PACS LVIDs 2.89 2.2 - 3.5 cm SSM CV FUJI PACS IVSd 2D 0.887 0.6 - 0.9 cm SSM CV FUJI PACS LVPWd 0.81 cm SSM CV FUJ I PACS Fractional Shortening 2D 41 28 - 44 % SSM CV FUJI PACS LV ESV BP 34.114 14 - 42 mL SSM CV FUJI PACS LV ESV index BP 18.6 8 - 24 mL/m2 SSM CV FUJI PACS LV ESV A2C 36.795 10 - 54 mL SSM CV FUJI PACS LV EDV BP 79.237 mL SSM CV FUJ I PACS LV ESV A4C 31.467 12 - 60 mL SSM CV FUJI PACS LV EDV index BP 43.3 29 - 61 mL/m2 SSM CV FUJI PACS LV EDV A2C 70.185 41 - 133 mL SSM CV FUJI PACS LV EDV A4C 88.376 mL SSM CV FU JI PACS LV ESV 2D 32.061 14 - 42 mL SSM CV FUJI PACS LV EDV 2D 111.793 46 - 106 mL SSM CV FUJI PACS LVOT diam 2.0 cm SSM CV [facility] I PACS LVOT area 3.14 cm2 SSM CV FUJ I PACS LV RWT 0.332 SSM CV FUJ I PACS LV Wolff A2C 8.349 cm SSM CV F UJI PACS LV Wolff A4C 8.221 cm SSM CV F UJI PACS IVS/LVPW 1.093 SSM CV [facility] I PACS MV E pk beto 57.744 cm/s SSM CV F UJI PACS MV avg E/e' ratio 5.75 SS M CV FUJI PACS MV A pk beto 73.504 cm/s SSM CV F UJI PACS MV E A ratio 0.79 SSM CV FUJI PACS MV E' lateral beto 13.389 cm/s SS M CV FUJI PACS MV DT 181 ms SSM CV [facility] I PACS MV E' septal beto 8.031 cm/s SSM CV FUJI PACS MV A duration 118 ms SSM CV FUJI PACS MV E/e' septal 7.19 SSM C V FUJI PACS MV E/e' lateral 4.313 [facility] P vein A beto 26.8 cm/s SSM CV FUJI PACS P vein A duration 143 ms SS M CV FUJI PACS LVOT pk beto 1.12 m/s SSM CV F UJI PACS LVOT mn beto 0.71 m/s SSM CV F UJI PACS LVOT mn grad 2.4 mmHg SSM CV FUJI PACS LVOT Cardiac Output 4.739 l/min SSM CV FUJI PACS GLS -19.7 % SSM CV FUJ I PACS AA pk sys strain -28.3 % SSM CV FUJI PACS AAS pk sys strain -20.5 % SS M CV FUJI PACS AI pk sys strain -27.6 % SSM CV FUJI PACS AL pk sys strain -19.9 % SSM CV FUJI PACS AP pk sys strain -19.9 % SSM CV FUJI PACS pk sys strain -21.0 % SSM CV FUJI PACS BA pk sys strain -19.6 % SSM CV FUJI PACS BAS pk sys strain -16.1 % SS M CV FUJI PACS BI pk sys strain -16.8 % SSM CV FUJI PACS BL pk sys strain -13.4 % SSM CV FUJI PACS BS pk sys strain -11.7 % SSM CV FUJI PACS GPLS A2C -22.8 % SSM CV FUJ I PACS GPLS A4C -17.1 % SSM CV FUJ I PACS GPLS APLAX -19.3 % SSM CV FU JI PACS MA pk sys strain -23.8 % SSM CV FUJI PACS MAS pk sys strain -18.8 % SS M CV FUJI PACS IN pk sys strain -19.2 % SSM CV FUJI PACS ML pk sys strain -17.3 % SSM CV FUJI PACS MP pk sys strain -21.3 % SSM CV FUJI PACS MS pk sys strain -17.0 % SSM CV FUJI PACS LA vol BP A-L 45.127 mL SSM CV FUJI PACS RV-wolff basal diam 1.9 2.5 - 4.1 cm SSM CV FUJI PACS RV-wolff longitudinal diam 6.6 5.9 - 8.3 cm SSM CV FUJI PACS RVIDd 3.6 cm SSM CV FUJ I PACS RVOT VTI 14.916 cm SSM CV FUJ I PACS TV S' beto 17.781 SSM CV FUJ I PACS TAPSE 2.482 1.7 cm SSM CV FUJ I PACS RVOT pk beto 0.73 m/s SSM CV F UJI PACS RA area 10.823 cm2 SSM CV FUJ I PACS AV mn grad 6 mmHg SSM CV FU JI PACS AV pk grad 11 mmHg SSM CV FU JI PACS AV mn beto 1.15 m/s SSM CV FUJ I PACS AV pk beto 1.63 m/s SSM CV FUJ I PACS AV VTI 32.257 cm SSM CV FUJ I PACS LVOT pk grad 5.014 mmHg SSM CV FUJI PACS LVOT VTI 21.222 cm SSM CV FUJ I PACS AV area planimetry 2.07 cm2 S SM CV FUJI PACS AV area cont VTI 2.2 cm2 SSM CV FUJI PACS AV area pk beto 2.3 cm2 SSM C V FUJI PACS AV Doppler beto index pk beto 0.69 SSM CV FUJI PACS AV closure time 0.3 s SSM CV FUJI PACS Dimensionless Index 0.658 SSM CV FUJI PACS MV mn grad 1 mmHg SSM CV FU JI PACS MV pk grad 3 mmHg SSM CV FU JI PACS MV mn beto 0.50 m/s SSM CV FUJ I PACS MV pk beto 88.074 cm/s SSM CV FUJ I PACS MV PHT 52 ms SSM CV FUJ I PACS MV area PHT 4.23 cm2 SSM CV F UJI PACS MV area cont eq 3.20 cm2 SSM CV FUJI PACS MV VTI 20.852 cm SSM CV FUJ I PACS MV decel slope 319.389 cm/s2 SSM C V FUJI PACS TV area PHT 2.29 cm2 SSM CV F UJI PACS TV PHT 83 ms SSM CV FUJ I PACS TV DT 0.285 ms SSM CV FUJ I PACS RVOT mn grad 1 mmHg SSM CV FUJI PACS RVOT pk grad 2 mmHg SSM CV FUJI PACS NC pk beto 128.145 cm/s SSM CV FUJ I PACS NC pk grad 7 mmHg SSM CV FU JI PACS PV mn grad 2 mmHg SSM CV FU JI PACS PV pk beto 124.539 cm/s SSM CV FUJ I PACS PV pk grad 6 mmHg SSM CV FU JI PACS PV VTI 20.704 cm SSM CV FUJ I PACS PV mn beto 71.11 cm/s SSM CV FUJ I PACS Ascending aorta 3.28 cm SSM CV FUJI PACS IVC size 1.4 cm SSM CV FUJ I PACS Max Age Predicted HR 155 SSM CV FUJI PACS Target HR 132 SSM CV FUJ I PACS [id number] 6.74 cm SSM CV FUJ I PACS [id number] 6.647 cm SSM CV FUJ I PACS LV stroke vol BP 45.123 mL SSM CV FUJI PACS Sinus of Valsalva 2.90 cm SS M CV FUJI PACS ST junction 2.8 cm SSM CV F UJI PACS Anatomical Region Laterality Modality Ultrasound Narrative 10/01/2022 11:08 AM CDT Left Ventricle: Left ventricle size is normal. Normal wall thickness. Ventricular mass is normal. Normal systolic function. EF by 2D Ugalde biplane is 57%. Normal wall motion. Normal diastolic function. Right Ventricle: Right ventricle size is normal. Normal systolic function. No significant valvular abnormalities. Left Ventricle Left ventricle size is normal. Normal wall thickness. Ventricular mass is normal. Normal systolic function. EF by 2D Ugalde biplane is 57%. Normal wall motion. Normal diastolic function. Right Ventricle Right ventricle size is normal. Normal systolic function. Left Atrium Left atrium size is normal. Right Atrium Right atrium size is normal. IVC/SVC IVC diameter is less than or equal to 21 mm and decreases greater than 50% during inspiration; therefore the estimated right atrial pressure is normal (~3 mmHg). Mitral Valve Valve structure is normal. No restricted motion. Trace regurgitation. No stenosis. Tricuspid Valve Valve structure is normal. No restricted motion. Trace regurgitation. Unable to estimate the pulmonary artery systolic pressure due to incomplete tricuspid regurgitation envelope. No stenosis. Aortic Valve Valve structure is trileaflet. No restricted motion. No regurgitation. No stenosis. AV mean gradient is 6 mmHg. AV peak velocity is 1.63 m/s. AV area by continuity VTI is 2.2 cm2. Pulmonic Valve Valve structure is normal. Trace regurgitation. No stenosis. Ascending Aorta Normal sized sinus of Valsalva (aortic root) and ascending aorta. Sinus of Valsalva is 2.90 cm. Ascending Aorta is 3.28 cm. Pericardium No pericardial effusion. Study Details Study quality was good. A complete 2D, color Doppler, spectral Doppler, strain and M-mode echocardiogram was performed. The apical, parasternal, subcostal and suprasternal views were obtained. Patient exhibited sinus rhythm. Procedure Note Trina Son MD - 10/01/2022 Left Ventricle: Left ventricle size is normal. Normal wall thickness.Ventricular mass is normal. Normal systolic function. EF by 2D Simpsonbiplane is 57%. Normal wall motion. Normal diastolic function. Right Ventricle: Right ventricle size is normal. Normal systolicfunction. No significant valvular abnormalities. Ramos Wallace MD ECHO CUPID * CREATININE URINE RANDOM (10/01/2022 7:32 AM CDT) Creatinine Urine 18.10 Not Established mg/dL 10/01/2022 8:19 AM CDT [facility] Urine URINE SPECIMEN OBTAINED BY CLEAN CATCH PROCEDURE / Unknown Collection / Unknown 10/01/2022 7:32 AM CDT 10/01/2022 7:51 AM CDT Virginia Andrews MD LAB - URINE CHEMISTR Y ORDERABLES Performing Organization Address City/[facility]/ZIP Co de Phone Number [address] [address], [facility] [phone] * PHOSPHORUS URINE RANDOM (10/01/2022 7:32 AM CDT) Phosphorus Random Urine <5.0 Not Established mg/dL 10/01/2022 8:19 AM CDT [facility] Urine URINE SPECIMEN OBTAINED BY CLEAN CATCH PROCEDURE / Unknown Collection / Unknown 10/01/2022 7:32 AM CDT 10/01/2022 7:51 AM CDT Virginia Andrews MD LAB - URINE CHEMISTR Y ORDERABLES [address] [address], [place] [phone] * PTH INTACT ([facility]) (10/01/2022 7:27 AM CDT) PTH Intact 27.5 8.0 - 77.0 pg/mL 10/01/2022 8:21 AM CDT [facility] Blood BLOOD SPECIMEN / Unknown Lab Venipuncture / Unknown 10/01/2022 7:27 AM CDT 10/01/2022 7:50 AM CDT Virginia Andrews MD LAB - CHEMISTRY EZEKIEL ROBLERO Performing Organization Address City/[facility]/ZIP Co de Phone Number [address] [address], [facility] [phone] * (ABNORMAL) VITAMIN D 25-HYDROXY (10/01/2022 7:27 AM CDT) [facility] Vitamin D, 25 Hydroxy >100.0(H) 30.0 - 80.0 ng/mL 10/01/2022 8:35 AM CDT [facility] Comment: The recommendations for 25-Hydroxy Vitamin D clinical decision points are as follows: Deficient: <20.0 ng/mL Insufficient: 20.0 - 29.9 ng/mL Sufficient: 30.0 - 100.0 ng/mL Potential Toxicity: >100 ng/mL Reference: The Endocrine Society Clinical Practice Guidelines. 2011 If the 25-Hydroxy Vitamin D results are inconsitent with clinical evidence, it is recommended that follow-up testing using a method such as LC/MS/MS be performed to confirm the result. Blood BLOOD SPECIMEN / Unknown Lab Venipuncture / Unknown 10/01/2022 7:27 AM CDT 10/01/2022 7:50 AM CDT Virginia Andrews MD LAB - CHEMISTRY EZEKIEL ROBLERO [address] [address], [place] [phone] * XR CHEST 2VW (09/20/2022 3:08 PM CDT) Anatomical Region Laterality Modality Chest Radiographic Josefina ging 09/20/2022 4:11 PM CDT Narrative 09/21/2022 12:21 AM CDT PROCEDURE: XR CHEST 2VW, DATE/TIME OF EXAM: 09/20/2022 3:08 PM, LOCATION [facility] INDICATION: Z00.5: Willing to be kidney donor ADDITIONAL CLINICAL INFORMATION: Ordering Provider Reason For Exam: Technologist Note: Additional: Comparison: No prior study is available for comparison at the time of this dictation. Findings/Impression: There is no focal consolidation, pleural effusion, or pneumothorax. The cardiomediastinal silhouette is normal. The visible bony thorax is intact. Report dictated by Tanner Payton MD (chaplain resident). Naif Villanueva MD have personally reviewed and interpreted this examination/study. > Interpreting Provider: Naif Beltrán MD on 09/21/2022 12:21 AM Procedure Note Allyson Beltrán MD - 09/21/2022 PROCEDURE: XR CHEST 2VW, DATE/TIME OF EXAM: 09/20/2022 3:08 PM, LOCATION [facility] INDICATION: Z00.5: Willing to be kidney donor ADDITIONAL CLINICAL INFORMATION: Ordering Provider Reason For Exam: Technologist Note: Additional: Comparison: No prior study is available for comparison at the time ofthis dictation. Findings/Impression: There is no focal consolidation, pleural effusion, or pneumothorax. The cardiomediastinal silhouette is normal. The visible bony thorax isintact. Report dictated by Tanner Payton MD (chaplain resident). Naif Villanueva MD have personally reviewed and interpreted this examination/study. > Interpreting Provider: Naif Beltrán MD on 09/21/2022 12:21 AM Mell Torres MD DIAGNOSTIC JOSEFINA GING ORDERABLES * CT ANGIO ABDOMEN PELVIS (09/20/2022 3:06 PM CDT) Anatomical Region Laterality Modality Abdomen, Pelvis Computed Tomogra phy 09/21/2022 12:3 9 AM CDT Addenda Addendum by Mert Tello MD on 09/30/2022 11:40 PM CDT Addendum for correction of a typographical error: Left kidney: Number of veins: 1 > Dictated by Amanda Carver M.D. (chaplain resident). I, Mert Tello MD have personally reviewed and interpreted this examination/study. > Interpreting Provider: Mert Tello MD on 09/30/2022 11:37 PM Impressions 09/21/2022 12:59 AM CDT IMPRESSION: 1. No acute abnormality in the abdomen or pelvis. 2. Renal measurements provided in preparation for a potential willing to be kidney donor. > Interpreting Provider: Mert Tello MD on 09/21/2022 12:59 AM Narrative 09/21/2022 12:59 AM CDT PROCEDURE: CT ANGIO ABDOMEN PELVIS DATE/TIME OF EXAM: 09/20/2022 3:08 PM CLINICAL INFORMATION: None relevant/not provided if blank. Indication: Z00.5: Willing to be kidney donor Additional History: COMPARISON: None. TECHNIQUE: CT angiography of the abdomen and pelvis was performed without IV contrast followed by IV contrast. including 3D post processing CTA image reconstruction. CT dose reduction technique was used, including Automated Exposure Control. CONTRAST: IOPAMIDOL 76 % IV SOLN:100 mL FINDINGS: Vascular findings: Abdominal aorta is normal with no significant atherosclerotic calcifications. The celiac artery is normal. The superior mesenteric artery and inferior mesenteric artery are normal. Common iliac arteries are normal. The renal arteries are normal. Right Kidney: Number of arteries: 1 Number [...] Number of arteries: 1 Number of veins: 9 Number of ureters: 1 Kidney height: 10.7 cm Kidney length: 4.4 cm Kidney width: 4.8 cm Kidney volume (mL/cc): 153 mL Renal artery has early bifurcation(<10mm from aorta): Yes Early bifurcation length (If present): 7 mm Other findings: Lung bases are clear. There is no pleural effusion. Heart is normal in size with no pericardial effusion. The liver is normal without focal liver lesion or intrahepatic bile ducts dilatation. The gallbladder is normal. There are multiple calcified splenic granulomas as well as a cystic lesion in the posterior splenic pole seen on series 9 image 43 measuring 9 mm. Both adrenal glands are normal. The urinary bladder is normal. The uterus is normal. There is no adnexal mass. The small and large bowel are normal in caliber with no bowel obstruction. There is no free intraperitoneal gas or free fluid in the pelvis. The appendix is normal. There is no lymphadenopathy in the abdomen and pelvis. No suspicious osseous lytic or blastic lesion on bone windows. There is multilevel lumbar spine degenerative disc disease, greatest and moderate at L2-L3 and L5-S1. There is mild lower lumbar facet arthropathy. Procedure Note Mert Tello MD - 09/21/2022 PROCEDURE: CT ANGIO ABDOMEN PELVIS DATE/TIME OF EXAM: 09/20/2022 3:08 PM CLINICAL INFORMATION: None relevant/not provided if blank. Indication: Z00.5: Willing to be kidney donor Additional History: COMPARISON: None. TECHNIQUE: CT angiography of the abdomen and pelvis was performed without IVcontrast followed by IV contrast. including 3D post processing CTA image reconstruction. CT dose reduction technique was used, including Automated ExposureControl. CONTRAST: IOPAMIDOL 76 % IV SOLN:100 mL FINDINGS: Vascular findings: Abdominal aorta is normal with no significant atherosclerotic calcifications. The celiac artery is normal. The superior mesenteric artery and inferior mesenteric artery are normal. Common iliac arteries are normal. The renal arteries are normal. Right Kidney: Number of arteries: 1 Number of veins: 1 Number of ureters: 1 Kidney height: 10.1 cm Kidney length: 5.4 cm Kidney width: 5.7 cm Kidney volume (mL/cc): 174 mL Renal artery has early bifurcation(<10mm from aorta): No There is a 2 mm cyst in the upper pole of the right kidney seen on series9 image 88 and a 1.1 cm cyst in the interpolar right kidney seen on series9 image 98. Is also a 4 mm cyst in the lower pole of the right kidney seenon series 9 image 104. Left Kidney: Number of arteries: 1 Number of veins: 9 Number of ureters: 1 Kidney height: 10.7 cm Kidney length: 4.4 cm Kidney width: 4.8 cm Kidney volume (mL/cc): 153 mL Renal artery has early bifurcation(<10mm from aorta): Yes Early bifurcation length (If present): 7 mm Other findings: Lung bases are clear. There is no pleural effusion.Heart is normal in size with no pericardial effusion. The liver is normal without focal liver lesion or intrahepatic bileducts dilatation. The gallbladder is normal. There are multiple calcifiedsplenic granulomas as well as a cystic lesion in the posterior splenic pole seenon series 9 image 43 measuring 9 mm. Both adrenal glands are normal. The urinary bladder is normal. The uterus is normal. There is no adnexal mass. The small and large bowel are normal in caliber with no bowelobstruction. There is no free intraperitoneal gas or free fluid in the pelvis. The appendix is normal. There is no lymphadenopathy in the abdomen and pelvis. No suspicious osseous lytic or blastic lesion on bone windows. There is multilevel lumbar spine degenerative disc disease, greatest and moderateat L2-L3 and L5-S1. There is mild lower lumbar facet arthropathy. IMPRESSION: 1. No acute abnormality in the abdomen or pelvis. 2. Renal measurements provided in preparation for a potential willing [place] kidney donor. > Interpreting Provider: Mret Tello MD on 09/21/2022 12:59 AM Mell Torres MD CT ORDERABLES * NM RENAL GFR STUDY (09/20/2022 2:39 PM CDT) Anatomical Region Laterality Modality Abdomen Nuclear Medicine 09/20/2022 10:2 8 AM CDT Impressions 09/20/2022 5:45 PM CDT Impression: GFR of 131.0 ml/min/1.73 m2, which is normal for the patient's age. > Dictated by Melissa Bautista MD (Packing Attendant) 09/20/2022 10:28 AM Hany Villanueva MD have personally reviewed and interpreted this examination/study. > Interpreting Provider: Hany Martin MD on 09/20/2022 5:45 PM Narrative 09/20/2022 5:45 PM CDT PROCEDURE: NM RENAL GFR STUDY DATE/TIME OF EXAM: 09/20/2022 8:48 AM CLINICAL INFORMATION: None relevant/not provided if blank. Indication: Z00.5: Willing to be kidney donor Procedure: GFR by sampling History: A 67 year old female presented for renal function evaluation prior to kidney donation. patient BMI not available in patient chart. Technique: After giving the patient 0.108 mCi of Tc-99m DTPA IV in the left antecubital fossa, standard protocol was followed and blood samples were drawn at 1 hour, 2 hours and 3 hours after injection. Serum was extracted from all samples and radiotracer activity was calculated which was incorporated in the software to calculate the GFR. Findings: Uncorrected GFR 137.0 ml/min/1.73 m2 After body surface area correction, Corrected GFR 131.0 Normal range of GFR in adult female between 74.4 and 110.4 Procedure Note Hany Martin MD - 09/20/2022 PROCEDURE: NM RENAL GFR STUDY DATE/TIME OF EXAM: 09/20/2022 8:48 AM CLINICAL INFORMATION: None relevant/not provided if blank. Indication: Z00.5: Willing to be kidney donor Procedure: GFR by sampling History: A 67 year old female presented for renal function evaluationprior to kidney donation. patient BMI not available in patient chart. Technique: After giving the patient 0.108 mCi of Tc-99m DTPA IV in theleft antecubital fossa, standard protocol was followed and blood samples were drawn at 1 hour, 2 hours and 3 hours after injection. Serum wasextracted from all samples and radiotracer activity was calculated which was incorporated in the software to calculate the GFR. Findings: Uncorrected GFR 137.0 ml/min/1.73 m2 After body surface area correction, Corrected GFR 131.0 Normal range of GFR in adult female between 74.4and 110.4 Impression: GFR of 131.0 ml/min/1.73 m2, which is normal for the patient's age. > Dictated by Melissa Bautista MD (Packing Attendant) 09/20/2022 10:28AM I, Hany Martin MD have personally reviewed and interpreted this examination/study. > Interpreting Provider: Hany Martin MD on 09/20/2022 5:45 PM Mell Torres MD NM ORDERABLES * NM RENAL SCAN WO DRUG (09/20/2022 1:04 PM CDT) Anatomical Region Laterality Modality Abdomen Nuclear Medicine 09/20/2022 12:0 9 PM CDT Impressions 09/20/2022 5:45 PM CDT IMPRESSION: 1. This is a normal study with normal flow and function to both kidneys. 2. Relative function is 48.0% for the left kidney and 52.0% for the right kidney. > Dictated by Melissa Bautista MD (Packing Attendant) 09/20/2022 12:09 PM I, Hany Martin MD have personally reviewed and interpreted this examination/study. > Interpreting Provider: Hany Martin MD on 09/20/2022 5:45 PM Narrative 09/20/2022 5:45 PM CDT PROCEDURE: NM RENAL SCAN WO DRUG DATE/TIME OF EXAM: 09/20/2022 12:01 PM CLINICAL INFORMATION: None relevant/not provided if blank. Indication: Z00.5: Willing to be kidney donor MAG3 renal scan with pharmacologic intervention. HISTORY: A 67 year old female presented for renal function evaluation prior to renal donation. BMI not available in patient chart. TECHNIQUE: An IV bolus of 10.48 mCi of Tc- 99m MAG 3 was administered. Sequential dynamic blood flow images of the abdomen were obtained in the anterior and posterior projections for 30 minutes following radiotracer injection. Whole kidney time-activity curves were produced with quantitative indices. FINDINGS: The blood flow phase of the study shows normal perfusion of both kidneys. The kidneys are grossly normal in size and contours. There is prompt uptake and excretion of the tracer bilaterally. The quantitative values are as follows: COMPARISON: Quantitative function Left Right 5.0 5.0 Time to peak (mins) 9.0 9.0 T 1/2 (mins) 48.0 52.0 Differential function (%) Procedure Note Hany Martin MD - 09/20/2022 PROCEDURE: NM RENAL SCAN WO DRUG DATE/TIME OF EXAM: 09/20/2022 12:01 PM CLINICAL INFORMATION: None relevant/not provided if blank. Indication: Z00.5: Willing to be kidney donor MAG3 renal scan with pharmacologic intervention. HISTORY: A 67 year old female presented for renal function evaluationprior to renal donation. BMI not available in patient chart. TECHNIQUE: An IV bolus of 10.48 mCi of Tc- 99m MAG 3 was administered. Sequential dynamic blood flow images of the abdomen were obtained in the anterior and posterior projections for 30 minutes following radiotracer injection. Whole kidney time-activity curves were produced with quantitative indices. FINDINGS: The blood flow phase of the study shows normal perfusion ofboth kidneys. The kidneys are grossly normal in size and contours. There is prompt uptake and excretion of the tracer bilaterally. The quantitative values are as follows: COMPARISON: Quantitative function Left Right 5.0 5.0 Time to peak (mins) 9.0 9.0 T 1/2 (mins) 48.0 52.0 Differential function (%) IMPRESSION: 1. This is a normal study with normal flow and function to both kidneys. 2. Relative function is 48.0% for the left kidney and 52.0% for theright kidney. > Dictated by Melissa Bautista MD (Packing Attendant) 09/20/2022 12:09PM I, Hany Martin MD have personally reviewed and interpreted this examination/study. > Interpreting Provider: Hany Martin MD on 09/20/2022 5:45 PM Mell Torres MD NM ORDERABLES * EKG 12-LEAD (09/20/2022 12:45 PM CDT) Ventricular Rate 70 BPM [facility] MUSE Atrial Rate 70 BPM [facility] P-R Interval 148 ms [facility] MUSE QRS Duration ms 84 ms [facility] MUSE Q-T Interval ms 396 ms SL MUSE QTC Calculation (Bezet) 427 ms [facility] MUSE Calculated P [place] 22 degrees [facility] MUSE Calculated R [place] -5 degrees [facility] MUSE Calculated T [place] 43 degrees [facility] MUSE Interpretation EKG NORMAL SINUS RHYTHM LOW VOLTAGE QRS BORDERLINE ECG NO PREVIOUS ECGS AVAILABLE Confirmed by fellow SIMRAN JARA MD ([id number]) on 09/22/2022 2:48:42 PM Confirmed by AURY ACOSTA MD ([id number]) on 09/27/2022 9:09:49 AM SL MUSE 09/20/2022 12:4 5 PM CDT 09/27/2022 9:09 AM CDT Mell Torres MD ECG ORDERABLES Performing Organization Address City/[facility]/ZIP Co de Phone Number [facility] MUSE * CYSTATIN C REFLEX (09/20/2022 8:21 AM CDT) eGFR by Cystatin C 71 >=60 mL/min/BSA 09/21/2022 7:56 PM CDT [facility] ([facility]) Comment: INTERPRETIVE INFORMATION: eGFR by Cystatin C eGFR by Cystatin C was calculated using the CKD-EPI equation. Stage Description eGFR Range 1.......Normal or increased eGFR.......90 or Greater 2.......Mildly decreased eGFR..........60-89 3.......Moderately decreased eGFR......30-59 4.......Severely decreased eGFR........15-29 5.......Kidney Failure.................Less than 15 Performed by [employer], [address] [place] [address] [email or web address], Evaristo Peña MD, PHD, Lab. Director Blood BLOOD SPECIMEN / Unknown Lab Venipuncture / Unknown 09/20/2022 8:21 AM CDT 09/20/2022 8:23 AM CDT Mell Torres MD LAB - CHEMISTR Y ORDERABLES [employer] [facility]) [address] * PTT [facility] (09/20/2022 8:21 AM CDT) APTT 23.4 23.0 - 38.4 Seconds 09/20/2022 8:52 AM CDT [facility] Comment:Suggested therapeuti c range for full dose I.V. unfractionated heparin therapy for venous thromboembolism is 71 to 109 seconds. Blood BLOOD SPECIMEN / Unknown Lab Venipuncture / Unknown 09/20/2022 8:21 AM CDT 09/20/2022 8:26 AM CDT Mell Torres MD LAB - COAGULAT ION ORDERABLES Performing Organization Address [facility] Co de Phone Number [address] [address], [facility] [phone] * PT-INR [facility] (09/20/2022 8:21 AM CDT) Pathologist [facility] PT 12.3 12.1 - 14.8 Seconds 09/20/2022 8:52 AM CDT [facility] INR 0.9 See Comment 09/20/2022 8:52 AM CDT [facility] Comment:The suggested therap eutic range for standard coumadin (warfarin) therapy is an INR of 2.0-3.0. For high-risk patients (Mechanical Mitral Valve Prosthesis, etc.), the suggested prophylactic therapeutic range is an INR of 2.5-3.5. Blood BLOOD SPECIMEN / Unknown Lab Venipuncture / Unknown 09/20/2022 8:21 AM CDT 09/20/2022 8:26 AM CDT Mell Torres MD LAB - COAGULAT ION ORDERABLES Performing Organization Address [facility] Co de Phone Number [address] [address], [facility] [phone] * (ABNORMAL) SHIRLEY-LIU VIRUS AB VIRAL CAPSID IGG/IGM (09/20/2022 8:21 AM CDT) Pathologist [facility] Shirley-Liu Viral Capsid Antigen Antibody IgG >600.0(H) 0.0 - 17.9 U/mL 09/21/2022 2:20 PM CDT [facility] ([facility]) Comment: Negative <18.0 Equivocal 18.0 - 21.9 Positive >21.9 Shirley-Liu Viral Capsid Antigen Antibody IgM <36.0 0.0 - 35.9 U/mL 09/21/2022 2:20 PM CDT [facility] ([facility]) Comment: Negative <36.0 Equivocal 36.0 - 43.9 Positive >43.9 Blood BLOOD SPECIMEN / Unknown Lab Venipuncture / Unknown 09/20/2022 8:21 AM CDT 09/20/2022 8:23 AM CDT Narrative [facility] ([facility]) - 09/21/2022 2:20 PM CDT Performed at: [address] [place] [address] [id number] Cycling Instructor: Gumaro Francis PhD, Phone: [phone] Mell Torres MD LAB - SEROLOGY ORDERABLES Performing Organization Address City/[facility]/ZIP Co de Phone Number [facility] ([facility]) [address] [place] [address] * HIV/HCV/HBV [facility] DONOR (09/20/2022 8:21 AM CDT) Donor HIV-1/HCV/HBV Comment Non Reactive 09/22/2022 11:17 AM CDT [facility] ([facility]) Comment: Non-Reactive for HIV RNA Non-Reactive for HCV RNA Non-Reactive for HBV DNA Test performed with [employer] Ultrio Elite Assay Kit. Blood BLOOD SPECIMEN / Unknown Lab Venipuncture / Unknown 09/20/2022 8:21 AM CDT 09/20/2022 8:23 AM CDT N[facility]ative [facility] ([facility]) - 09/22/2022 11:17 AM CDT Performed at: [facility] [address] [place] [address] [id number] Cycling Instructor: José Miguel Loyola [facility], Phone: [phone] Mell Torres MD LAB - CHEMISTR Y ORDERABLES Performing Organization Address City/[facility]/ZIP Co de Phone Number [facility] ([facility]) [address] [place] [address], [facility] * HIV 1/0/2 RFLX TO WB DONOR (09/20/2022 8:21 AM CDT) [facility] HIV-1/HIV-2 Ab + p24 Ag Negative Negative 09/21/2022 6:18 PM CDT [facility] ([facility]) Comment: Test performed with [employer] s HIV Ag/Ab kit. The HIV Ag/Ab Combo Kit can detect: HIV-1 (groups M and O)/HIV-2 Ab, HIV-1 p24 Ag Blood BLOOD SPECIMEN / Unknown Lab Venipuncture / Unknown 09/20/2022 8:21 AM CDT 09/20/2022 8:23 AM CDT Narrative [facility] ([facility]) - 09/21/2022 6:18 PM CDT Performed at: [facility] [address] [place] [address] [id number] Cycling Instructor: José Miguel Loyola [facility], Phone: [phone] Mell Torres MD LAB - CHEMISTR Y ORDERABLES Performing Organization Address City/[facility] Co de Phone Number [facility] ([facility]) [address] [place] [address] * HEPATITIS C AB SCREEN RFLX NAAT QUANT (09/20/2022 8:21 AM CDT) Hepatitis C Antibody Non-react onesimo Non-reac tive 09/20/2022 9:06 AM CDT [facility] Comment:Hepatitis C Antibody screen indicates [...] Torres MD LAB - CHEMISTR Y ORDERABLES [facility] [address] [place] [address], [facility] [phone] * SYPHILIS ANTIBODY CASCADING REFLEX (09/20/2022 8:21 AM CDT) Treponema pallidum Antibody Non-react onesimo Non-react onesimo 09/20/2022 9:06 AM CDT [facility] Comment: No Laboratory evidence of syphilis infection. Note: Circulating antibodies may be low or undetectable in early infection. If recent exposure is suspected, re-draw sample in 2-4 weeks and repeat testing. Blood BLOOD SPECIMEN / Unknown Lab Venipuncture / Unknown 09/20/2022 8:21 AM CDT 09/20/2022 8:23 AM CDT Mell Torres MD LAB - SEROLOGY ORDERABLES [facility] [address] [place] [address], [facility] [phone] * TRYPANOSOMA ANTIBODY IGG (09/20/2022 8:21 AM CDT) [facility] Trypan. cruzi IgG 0.4 <=1.0 IV 023 8:05 PM CDT [facility] ([facility]) Comment: INTERPRETIVE INFORMATION: Trypanosoma cruzi Ab, IgG 1.0 IV or less......Negative - No significant level of Trypanosoma cruzi IgG antibody detected. 1.1 IV..............Equivocal - Questionable presence of Trypanosoma cruzi IgG antibody detected. Repeat testing in 10-14 days may be helpful. 1.2 IV or greater...Positive - IgG antibodies to Trypanosoma cruzi detected, which may suggest current or past infection. This assay should not be used for blood donor screening or associated re-entry protocols, or for screening Human Cell and Cellular Tissue-Based Products (HCT/Ps). According to the CDC, at least two different serologic tests should be used to make the laboratory diagnosis of chronic Chagas Disease, as no single serologic test is sufficiently sensitive and specific. Performed By: [facility] [address] [place] [address] Podiatric Physician: Evaristo Peña MD, PhD Blood BLOOD SPECIMEN / Unknown Lab Venipuncture / Unknown 09/20/2022 8:21 AM CDT 09/20/2022 8:22 AM CDT Mell Torres MD LAB - SEROLOGY ORDERABLES [facility] [employer] [facility]) [address] [place] [address], [facility] * QUANTIFERON-TB GOLD PLUS 4-TUBE (09/20/2022 8:21 AM CDT) QuantiFERON NIL 0.06 IU/mL 2:56 AM CDT [facility]) Comment: Performed By: [facility] [address] [place] [address] Podiatric Physician: Evaristo Peña MD, PhD QuantiFERON TB Gold Plus Negative Negative 09/23/2022 2:56 AM CDT [facility] [employer] [facility]) Comment: Interpretive Data: Quantiferon TB Gold Plus Interferon gamma release is measured for specimens from each of the four collection tubes. A qualitative result (Negative, Positive, or Indeterminate) is based on interpretation of the four values, NIL, MITOGEN minus NIL (MITOGEN-NIL), TB1 minus NIL (TB1-NIL), and TB2 minus NIL (TB2-NIL). The NIL value represents nonspecific reactivity produced by the patient specimen. The MITOGEN-NIL value serves as the positive control for the patient specimen, demonstrating successful lymphocyte activity. The TB1-NIL tube specifically detects CD4+ lymphocyte reactivity, specifically stimulated by the TB1 antigens. The TB2-NIL tube detects both CD4+ and CD8+ lymphocyte reactivity, stimulated by TB2 antigens. An overall Negative result does not completely rule out TB infection. A false-positive result in the absence of other clinical evidence of TB infection is not uncommon. Refer to: Updated Guidelines for Using Interferon Gamma Release Assays to Detect Mycobacterium tuberculosis Infection --- [place], 2010 (http://www.cdc.gov/mmwr/preview/mmwrhtml/ff2758g5.htm), for more information concerning test performance in low-prevalence populations and use in occupational screening. QuantiFERON Plus TB1 Minus NIL 0.00 0.00 - 0.34 IU/mL 09/23/2022 2:56 AM CDT [facility] ([facility]) QuantiFERON Plus TB2 Minus NIL 0.00 0.00 - 0.34 IU/mL 09/23/2022 2:56 AM CDT [facility] ([facility]) QuantiFERON Mitogen Minus NIL >10.00 IU/mL 09/23/2022 2:56 AM T [facility]) Blood BLOOD SPECIMEN / Unknown Lab Venipuncture / Unknown 09/20/2022 8:21 AM CDT 09/20/2022 8:29 AM CDT Mell Torres MD LAB - CHEMISTR Y ORDERABLES [facility]) [address] [place] [phone], [facility] * URINALYSIS REFLEX MICROSCOPIC REFLEX CULTURE (09/20/2022 8:21 AM CDT) Color UA Straw Straw, Yellow 09/20/2022 8:30 AM [facility] Clarity UA Clear Clear 09/20/2022 8:30 AM [facility] Specific [place] UA 1.005 1.005 - 1.030 09/20/2022 8:30 AM [facility] pH UA 6.0 5.0 - 8.0 pH 09/20/2022 8:30 AM [facility] Protein UA Negative Negative 09/20/2022 8:30 AM [facility] Glucose UA Negative Negative 09/20/2022 8:30 AM [facility] Ketone UA Negative Negative 09/20/2022 8:30 AM [facility] Bilirubin UA Negative Negative 09/20/2022 8:30 AM [facility] Blood UA Negative Negative 09/20/2022 8:30 AM [facility] Nitrite UA Negative Negative 09/20/2022 8:30 AM [facility] Leukocyte Esterase Negative Negative 09/20/2022 8:30 AM [facility] Urobilinogen UA Negative Negative mg/dL 09/20/2022 8:30 AM [facility] Comment UA Microscopic not indicated. 09/20/2022 8:30 AM [facility] Urine URINE SPECIMEN OBTAINED BY CLEAN CATCH PROCEDURE / Unknown Collection / Unknown 09/20/2022 8:21 AM CDT 09/20/2022 8:22 AM CDT Narrative [facility] - 09/20/2022 8:30 AM CDT Authorizing Provider Result Maite Torres MD LAB - URINALYS IS ORDERABLES Performing Organization Address City/[facility]/ZIP Co de Phone Number [address] [address], [facility] [phone] * URIC ACID BLOOD (09/20/2022 8:21 AM CDT) Uric Acid 4.2 2.6 - 6.0 mg/dL 09/20/2022 8:57 AM CDT [facility] Blood BLOOD SPECIMEN / Unknown Lab Venipuncture / Unknown 09/20/2022 8:21 AM CDT 09/20/2022 8:26 AM CDT Narrative Authorizing Provider Result Maite Torres MD LAB - CHEMISTR Y ORDERABLES Performing Organization Address City/[facility]/ZIP Co de Phone Number [address] [address], [facility] [phone] * WEST NILE VIRUS ANTIBODY IGG/IGM PANEL (09/20/2022 8:21 AM CDT) Pathologist [facility] West Nile IgG Ab 0.17 <=1.29 IV 09/23/19 12:43 PM CDT [facility] ([facility]) Comment: INTERPRETIVE INFORMATION: West Nile Virus Ab, IgG by FELI, Serum 1.29 IV or less ........ Negative - No significant level of West Nile virus IgG antibody detected. 1.30 - 1.49 IV ......... Equivocal - Questionable presence of West Nile virus IgG antibody detected. Repeat testing in 10-14 days may be helpful. 1.50 IV or greater ..... Positive - Presence of IgG antibody to West Nile virus detected, suggestive of current or past infection. This test is intended to be used as a semi-quantitative means of detecting West Nile virus-specific IgG in serum samples in which there is a clinical suspicion of West Nile virus infection. This test should not be used solely for quantitative purposes, nor should the results be used without correlation to clinical history or other data. Because other members of the Flaviviridae family, such as St.Janes encephalitis virus, show extensive cross-reactivity with West Nile virus, serologic testing specific for these species should be considered. Seroconversion between acute and convalescent sera is considered strong evidence of current or recent infection. The best evidence for infection is a significant change on two appropriately timed specimens, where both tests are done in the same laboratory at the same time. West Nile IgM Ab 0.00 <=0.89 IV 09/23/19 12:43 PM CDT [facility] ([facility]) Comment: INTERPRETIVE INFORMATION: West Nile Virus Ab, IgM by FELI, Serum 0.89 IV or less ...... Negative - No significant level of West Nile virus IgM antibody detected. 0.90-1.10 IV ......... Equivocal - Questionable presence of West Nile virus IgM antibody detected. Repeat testing in 10-14 days may be helpful. 1.11 IV or greater ... Positive - Presence of IgM antibody to West Nile virus detected, suggestive of current or recent infection. This test is intended to be used as a semi-quantitative means of detecting West Nile virus-specific IgM in serum samples in which there is a clinical suspicion of West Nile virus infection. This test should not be used solely for quantitative purposes, nor should the results be used without correlation to clinical history or other data. Because other members of the Flaviviridae family, such as St.Janes encephalitis virus, show extensive cross-reactivity with West Nile virus, serologic testing specific for these species should be considered. Seroconversion between acute and convalescent sera is considered strong evidence of current or recent infection. The best evidence for infection is a significant change on two appropriately timed specimens, where both tests are done in the same laboratory at the same time. Performed By: [facility] [address] [place] [address] Podiatric Physician: Evaristo Peña MD, PhD Blood BLOOD SPECIMEN / Unknown Lab Venipuncture / Unknown 09/20/2022 8:21 AM CDT 09/20/2022 8:23 AM CDT Mell Torres MD LAB - CHEMISTR Y ORDERABLES Performing Organization Address City/[facility] de Phone Number [facility] [employer] ([facility]) [address] * STRONGYLOIDES ANTIBODY IGG (09/20/2022 8:21 AM CDT) Pathologist [facility] Strongyloides Antibody IgG 0.5 <=0.9 IV 09/23/2022 2:37 AM CDT [facility] [employer] ([facility]) Comment: INTERPRETIVE INFORMATION: Strongyloides Ab, IgG by FELI 0.9 IV or less....... Negative - No significant level of Strongyloides IgG antibody detected. 1.0 IV................Equivocal - The Strongyloides IgG antibody result is borderline and therefore inconclusive. Recommend retesting the patient in 2-4 weeks, if clinically indicated. 1.1 IV or greater ... Positive - IgG antibodies to Strongyloides detected, which may suggest current or past infection. False-positive results may occur with prior exposure to other helminth infections. Testing low-prevalence populations may also result in false-positive results. Performed By: [facility] [address] [place] [address] Podiatric Physician: Evaristo Peña MD, PhD Blood BLOOD SPECIMEN / Unknown Lab Venipuncture / Unknown 09/20/2022 8:21 AM CDT 09/20/2022 8:23 AM CDT Mell Torres MD LAB - SEROLOGY ORDERABLES Performing Organization Address [facility] de Phone Number [facility] [employer] ([facility]) [address] * CYTOMEGALOVIRUS ANTIBODY IGM BLOOD (09/20/2022 8:21 AM CDT) Pathologist [facility] Cytomegalovirus Antibody IgM <30.0 0.0 - 29.9 AU/mL 09/21/2022 9:22 AM CDT [facility] ([facility]) Comment: Negative <30.0 Equivocal 30.0 - 34.9 Positive >34.9 A positive result is generally indicative of acute infection, reactivation or persistent IgM production. Blood BLOOD SPECIMEN / Unknown Lab Venipuncture / Unknown 09/20/2022 8:21 AM CDT 09/20/2022 8:22 AM CDT Narrative [facility] ([facility]) - 09/21/2022 9:22 AM CDT Performed at: - [facility] [address] [place], [place] [id number] Cycling Instructor: Gumaro Francis PhD, Phone: [phone] Mell Torres MD LAB - CHEMISTR Y ORDERABLES [facility] ([facility]) [address] [place] [address], [facility] * (ABNORMAL) CYTOMEGALOVIRUS ANTIBODY IGG BLOOD (09/20/2022 8:21 AM CDT) Cytomegalovirus Antibody IgG >10.00(H ) <=0.70 U/mL 09/21/2022 3:58 PM CDT [facility] ([facility]) Comment: INTERPRETIVE INFORMATION: Cytomegalovirus Antibody, IgG 0.59 U/mL or less......... Not Detected 0.6 - 0.69 U/mL........... Indeterminate-Repeat testing in 10-14 days may be helpful. 0.70 U/mL or greater...... Detected In immunocompromised patients, CMV serology (IgG or IgM antibody titers) may not be reliable and may be misleading in the diagnosis of acute or reactivation CMV disease. The preferred method for diagnosis is culture of virus and/or demonstration of viral antigen in peripheral white cells (buffy coat), bronchoalveolar lavage (BAL) cells, or tissue biopsies. This test should not be used for blood donor screening, associated re-entry protocols, or for screening Human Cell, Tissues and Cellular and Tissue-Based Products (HCT/P). The best evidence for current infection is a significant change on two appropriately timed specimens, where both tests are done in the same laboratory at the same time. Performed By: [facility] [address] [place] [id number] Podiatric Physician: Evaristo Pñea MD, PhD Blood BLOOD SPECIMEN / Unknown Lab Venipuncture / Unknown 09/20/2022 8:21 AM CDT 09/20/2022 8:23 AM CDT Mell Torres MD LAB - CHEMISTR Y ORDERABLES Performing Organization Address City/[facility]/ZIP Co de Phone Number [facility] [employer] [facility]) [address] [place] [address] * NICOTINE + METABOLITES BLOOD (09/20/2022 8:21 AM CDT) Nicotine <5 ng/mL 09/24/2022 12:44 AM CDT [facility] [employer] ([facility]) Comment: Consistent with abstinence from nicotine-containing products for at least 1 week. INTERPRETIVE INFORMATION: Nicotine and Metabolites, Serum or Plasma, Quantitative Methodology: Quantitative Liquid Chromatography-Tandem Mass Spectrometry Positive cutoff: 5 ng/mL For medical purposes only; not valid for forensic use. This test is designed to evaluate recent use of nicotine-containing products. Passive and active exposure cannot be discriminated definitively, although a cutoff of 10 ng/mL cotinine is frequently used for surgery qualification purposes. For smoking cessation programs or compliance testing, the absence of expected drug(s) and/or drug metabolite(s) may indicate non-compliance, inappropriate timing of specimen collection relative to drug administration, poor drug absorption, or limitations of testing. This test cannot distinguish between use of tobacco and purified nicotine products. The concentration value must be greater than or equal to the cutoff to be reported as positive. This test was developed and its performance characteristics determined by [facility]. It has not been cleared or approved by the [place] Food and Drug Administration. This test was performed in a CLIA certified laboratory and is intended for clinical purposes. Performed By: [facility] [address] [place] [address] Podiatric Physician: Evaristo Peña MD, PhD Cotinine <5 ng/mL 09/24/2022 12:44 AM CDT [facility] [employer] ([facility]) Blood BLOOD SPECIMEN / Unknown Lab Venipuncture / Unknown 09/20/2022 8:21 AM CDT 09/20/2022 8:23 AM CDT Mell Torres MD LAB - CHEMISTR Y ORDERABLES Performing Organization Address City/[facility]/ZIP Co de Phone Number [facility] [employer] [facility]) [address] [place] [address] * (ABNORMAL) COMPREHENSIVE METABOLIC PANEL (09/20/2022 8:21 AM [facility]) BUN 15 7 - 26 mg/dL 09/20/2022 8:57 AM [facility] Creatinine 0.73 0.56 - 0.96 mg/dL 09/20/2022 8:57 AM [facility] Sodium 138 136 - 145 mmol/L 09/20/2022 8:57 AM [facility] Potassium 4.3 3.5 - 4.5 mmol/L 09/20/2022 8:57 AM [facility] Chloride 107 98 - 107 mmol/L 09/20/2022 8:57 AM [facility] CO2 24 22 - 29 mmol/L 09/20/2022 8:57 AM [facility] Glucose 92 70 - 115 mg/dL 09/20/2022 8:57 AM [facility] Calcium 9.2 8.4 - 10.2 mg/dL 09/20/2022 8:57 AM [facility] Protein Total 7.4 6.0 - 8.3 g/dL 09/20/2022 8:57 AM [facility] Albumin 3.6 3.4 - 5.0 g/dL 09/20/2022 8:57 AM [facility] Bilirubin Total 1.0 0.2 - 1.2 mg/dL 09/20/2022 8:57 AM [facility] Alkaline Phosphatase 49 40 - 150 U/L 09/20/2022 8:57 AM [facility] ALT 15 5 - 55 U/L 09/20/2022 8:57 AM [facility] AST 19 5 - 34 U/L 09/20/2022 8:57 AM [facility] Anion Gap 11 8 - 18 09/20/2022 8:57 AM [facility] BUN/Creatinine Ratio 21 7 - 23 09/20/2022 8:57 AM [facility] Osmolality Calculated 286 270 - 300 mOsm/kg 09/20/2022 8:57 AM [facility] Albumin/Globulin Ratio 0.9(L) 1.1 - 2.3 09/20/2022 8:57 AM CDT [facility] eGFR by CKD-EPI >90 >=90 mL/min/1.7 3 m2 09/20/2022 8:57 AM CDT [facility] Blood BLOOD SPECIMEN / Unknown Lab Venipuncture / Unknown 09/20/2022 8:21 AM CDT 09/20/2022 8:26 AM CDT Mell Torres MD LAB - CHEMISTR Y ORDERABLES Performing Organization Address City/[facility]/ZIP Co de Phone Number [address] [address], [facility] [phone] * HEPATITIS B SURFACE ANTIBODY (09/20/2022 8:21 AM CDT) Hepatitis B Virus Surface Antibody Non-react onesimo Non-react onesimo 09/20/2022 9:06 AM T [facility] Comment: < 8 mIU/mL Hepatitis B surface Antibody (HBsAb). Nonreactive for HBsAb - individual is considered not immune to Hepatitis B Virus infection. Hepatitis B Surface Antibody Quantitative 0.0 <8.0 mIU/mL 09/20/2022 9:06 AM T [facility] Comment: Hepatitis B Surface Antibody Numeric Result Interpretation: Nonreactive: <8.0 mIU/mL Indeterminate: 8.0 - 12.0 mIU/mL Reactive: >12.0 mIU/mL Blood BLOOD SPECIMEN / Unknown Lab Venipuncture / Unknown 09/20/2022 8:21 AM CDT 09/20/2022 8:23 AM CDT Mell Torres MD LAB - CHEMISTR Y ORDERABLES Performing Organization Address City/[facility]/ZIP Co de Phone Number [address] [address], [facility] [phone] * HEPATITIS B CORE ANTIBODY TOTAL (09/20/2022 8:21 AM CDT) HBc Antibody Total Non-reacti ve Non-reacti ve 09/20/2022 9:06 AM CDT [facility] Blood BLOOD SPECIMEN / Unknown Lab Venipuncture / Unknown 09/20/2022 8:21 AM CDT 09/20/2022 8:23 AM CDT Narrative Authorizing Provider Result Maite Torres MD LAB - CHEMISTR Y ORDERABLES Performing Organization Address City/[facility]/ZIP Co de Phone Number [address] [address], [facility] [phone] * HEPATITIS B SURFACE ANTIGEN W RFLX CONFIRMATION (09/20/2022 8:21 AM CDT) Hepatitis B Virus Surface Antigen Non-reacti ve Non-reacti ve 09/20/2022 9:06 AM CDT [facility] Blood BLOOD SPECIMEN / Unknown Lab Venipuncture / Unknown 09/20/2022 8:21 AM CDT 09/20/2022 8:23 AM CDT Narrative Authorizing Provider Result Maite Torres MD LAB - CHEMISTR Y ORDERABLES [address] [address], [facility] [phone] * ALCOHOL ETHYL BLOOD (09/20/2022 8:21 AM CDT) Ethanol (mg/dL) <10 <=10 mg/dL 8:57 AM CDT [facility] Ethanol Calculated (g/dL) <0.010 <0.010 g/dL 09/20/2022 8:57 AM CDT [facility] Blood BLOOD SPECIMEN / Unknown Lab Venipuncture / Unknown 09/20/2022 8:21 AM CDT 09/20/2022 8:26 AM CDT Narrative [facility] - 09/20/2022 8:57 AM CDT Ethanol Interp <10: None Detected. Depression of CUSTOMER OPERATIONS ASSOCIATE: >100 mg/dl Potentially Critical: >250 mg/dl Potentially Fatal >400 mg/dl Ethanol in the patient's blood will contribute to the osmolar gap. Ethanol's contribution to the osmolar gap can be estimated by dividing the concentration of ethanol in mg/dL by 4.6. This test is for clinical use only and does not equal a KRISTIE for legal purposes. Mell Torres MD LAB - CHEMISTR Y ORDERABLES [address] [address], [facility] [phone] * URINE DRUG SCREEN IMMUNOASSAY (09/20/2022 8:20 AM CDT) [facility] Amphetamines Screen Urine Negative Negative: < 1000 ng/mL 09/20/2022 8:52 AM [facility] Barbiturates Screen Urine Negative Negative: < 200 ng/mL 09/20/2022 8:52 AM [facility] Benzodiazepine Screen Urine Negative Negative: < 200 ng/mL 09/20/2022 8:52 AM [facility] Opiates Urine Negative Negative: < 300 ng/mL 09/20/2022 8:52 AM [facility] Cocaine Metabolites Urine Negative Negative: < 300 ng/mL 09/20/2022 8:52 AM [facility] Phencyclidine Screen Urine Negative Negative: < 25 ng/ml 09/20/2022 8:52 AM [facility] Cannabinoids Screen Urine Negative Negative: <50 ng/mL 09/20/2022 8:52 AM [facility] Methadone Screen Urine Negative Negative: < 300 ng/mL 09/20/2022 8:52 AM [facility] Fentanyl Screen Urine Negative Negative: <1.5 ng/mL 09/20/2022 8:52 AM [facility] Urine URINE / Unknown Collection / Unknown 09/20/2022 8:20 AM CDT 09/20/2022 8:[address] [facility] - 09/20/2022 8:52 AM T The Urine Toxicology Screening Panel does not screen for Propoxyphene, Meprobamate, Carisoprodol, Trazodone, [id number]-[id number] medications and/or volatiles (Acetone, Isopropanol, Methanol or Ethylene Glycol). Ethanol, Salicylate, Acetaminophen, Tricyclic Antidepressants and several therapeutic drugs may be individually assayed in serum or plasma specimen. Toxicology testing by the [facility] is an aid to medical diagnosis and treatment of patients. No documented chain of custody was maintained. Results are intended to be used for clinical purposes only. Mell Torres MD LAB - URINE CH EMISTRY ORDERABLES Performing Organization Address City/[facility]/ZIP Co de Phone Number [facility] [address] [place] [phone], [facility] [phone] * TYPE + SCREEN PANEL (09/20/2022 8:15 AM CDT) Antibody Screen NEG 9:05 AM CDT [facility] B[facility] ABO Rh O POS 09/20/2022 9:05 AM CDT [facility] Blood Bank BLOOD SPECIMEN / Unknown 09/20/2022 8:15 AM CDT 09/20/2022 8:15 AM CDT Mell Torres MD LAB - BLOOD BA NK ORDERABLES Performing Organization Address [facility] Co de Phone Number [facility] [address] [place] [id number], [facility] [phone] * DERMATOPATHOLOGY (04/08/2020 12:00 AM BUTTER PRODUCTION SUPERVISOR) Case Report Dermatopathology Report Case: [id number] Authorizing Provider: Geo Marcano MD Collected: 04/08/2020 12:00 AM Ordering Location: [facility] Received: 04/09/2020 11:43 AM Pathologist: Akua Mulligan MD Specimens: A) - Skin, below right popliteal B) - Skin, right lateral mid back 11:38 AM [employer]TER PRODUCTION SUPERVISOR DERMATOPATHOLOGY LABORATORY Final Diagnosis Specimen A. SKIN, below right popliteal: LICHEN PLANUS-LIKE KERATOSIS (BENIGN LICHENOID KERATOSIS) (L82.1) NOT PRESENT AT SAMPLED MARGIN Specimen B. SKIN, right lateral mid back: SEBORRHEIC KERATOSIS, IRRITATED AND INFLAMED (L82.0) 11:38 AM [facility] DERMATOPATHOLOGY [facility]ORATORY Clinical History A: R/O BCC. Check margins. B: R/O ISK vs dysplastic nevus. 11:38 AM [facility] DERMATOPATHOLOGY LABORATORY Gross Description Specimen A: Received is one formalin filled container labeled with the patients name and designated below right popliteal. The specimen consists of a shave removal measuring [id number]. The margin is inked green. Jar 0. Specimen B: Received is one formalin filled container labeled with the patient's name and designated right lateral mid back. The specimen consists of a shave biopsy measuring [id number]. Jar 0. 11:38 AM [facility] DERMATOPATHOLOGY LABORATORY Microscopic Description Specimen A. SKIN, [...] infiltrate within the papillary dermis. 11:38 AM [facility] DERMATOPATHOLOGY LABORATORY Disclaimer An external and internal positive and negative controls are appropriate for the histochemical, immunohistochemical and immunofluorescence stain(s) in this case (if any), except where stated explicitly. The performance characteristics of the stain(s) cited in this report were developed and its performance characteristic determined by the Dermatopathology Laboratory at [facility], directed by Dr. Betty Turpin. These tests need not be, and therefore are not, approved by the [place] Food and Drug Administration. The tests are used for clinical purposes. Billing Codes Specimen Charges Stain Charges 11490 03479 1 1 11:38 AM [facility] DERMATOPATHOLOGY LABORATORY Embedded Images 11:38 AM [facility] DERMATOPATHOLOGY [facility]ORATORY Pathology/Cytology TISSUE SPECIMEN FROM SKIN / Unknown 04/08/2020 04/09/2020 11:43 AM [facility] Miscellaneous samples (specimen) TISSUE SPECIMEN FROM SKIN / Unknown 04/08/2020 04/09/2020 11:43 AM BUTTER PRODUCTION SUPERVISOR Geo Marcano MD LAB - PATHOLOGY/CYTO LOGY ORDERABLES DERMATOPATHOLOGY LABORATORY [facility] - Department of Dermatology [facility] Specialized Medicine [facility] [facility] [place] [address], [facility] [phone] Care Teams Lead Ramp Agent Relationship Specialty Start Date End Date Mary Ann Betancourt MD [address] [place] [address] PCP - General Family Medicine 12/24/22 Ruthann Pepper MD [address] [facility] [address] [place] [address] Obstetrics and Gynecology 10/01/22 Yonatan Quick MD [address] [facility] [address] [place] [address] Toll Booth Operator Obstetrics and Gynecology 10/01/22
== END 2024-05-11 15:25 | disposition home or self-care (01) ==
LOC: ANHIMG 15:25
PROVIDERS: PCP Family Medicine; Visit Provider Obstetrics & Gynecology
DX: Z12.31 Encounter for screening mammogram for malignant neoplasm of breast (principal)
CPT/HCPCS: 77063; 77067